=== PATIENT | female | born 1995 | race Caucasian/White ===

== ENCOUNTER 2016-08-03 14:30 | Emergency (ER) | payer SELFPAY ==
[~2016-08-03] VITALS: Ht 172.7 cm; Wt 127.0 kg
[~2016-08-03 14:30] MED LIST: BENZ100C18 PO; CEFU250T PO; CEPH500C PO; CPR500T PO; FAMO-119 PO; HYOS0.1217 PO; METH4TAB PO; METR500T PO; NITR-65 PO; ONDA-42 SL; ONDA4TAB8 PO; PRD20T PO; bcp
--- OUTSIDE RECORDS SUMMARY | 2016-08-03 14:36 | XMS REPORT | Continuity of Care Document ---
Author Author [facility] Organization [facility] Address Unknown Phone Unavailable Care Team Providers Care Supervisor Gear Repair Name Role Phone KALEE SHEA PCP Insurance Providers Payer Name Policy Number Subscriber Name Relationship [facility] [id number] Peyton Zhong 17 Self / Same As Patient Advance Directives Directive Response Recorded Date/Time Advance Directives No 04/18/14 11:02pm Resuscitation Status Full Code 04/18/14 11:02pm Problems Medical Problems Problem Onset Date Status Epigastric abdominal pain Unknown Active Nausea and vomiting Unknown Active Medications Medication Dose Route Sig Days/Qty Instructions Order Date Discontinued Date Status [bcp] 04/12/12 03/21/13 Discontinued Methylprednisolone 0 PO DIRECTED 1 Qty 04/13/12 03/21/13 Discontinued Benzonatate 1 - 2 Each PO Q 4 - 6 HR PRN 30 Qty FOR COUGH 04/13/1203/21 Discontinued Ciprofloxacin 1 Tab PO TWICE A DAY 6 Days 03/21/13 04/18/14 Discontinued Metronidazole 1 Each PO TWICE A DAY 7 Days 03/21/13 04/18/14 Discontinued Prednisone 40 Mg PO DAILY 5 Days 03/21/13 04/18/14 Discontinued Ondansetron Hcl 4 Mg SL EVERY 4HRS PRN NAUSEA 10 Qty 04/19/14 Active Social History Social History Problem Response Recorded Date/Time Alcohol Use Denies Use 04/18/2014 11:02pm Recreational Drug Use No 04/18/2014 11:02pm Recent Foreign Travel No 04/18/2014 11:01pm Recent Infectious Disease Exposure No 04/18/2014 11:01pm Smoking Status Never a Smoker 04/18/2014 11:02pm Query Response Start Date Stop Date Smoking Status Never a Smoker Hospital Discharge Instructions No hospital discharge instructions. Plan of Care No plan of care. Functional Status No functional status results. Allergies, Adverse Reactions, Alerts Allergen Type Severity Reaction Status Last Updated No Known Drug Allergies Active 04/12/12 Immunizations No immunization records. Vital Signs Acute Vital Signs Vital Response Date/Time Temperature (Fahrenheit) 97.5 degrees F (97.6 - 99.5) Temperature Source Temporal Pulse Rate (Adolescent 12-19yrs) 100 bpm (56 - 106) Respiratory Rate (Adolescent 12-19yrs) 16 bpm (15 - 20) Blood Pressure / Blood Pressure Systolic (Adolescent 12-19yrs) 148 mm Hg (115 - 120) Pain Pain Intensity 2 Height (Feet) 5 feet Height (Inches) 8 inches Height (Calculated Centimeters) 172.985985 cm Weight (Pounds) 260 pounds Weight (Calculated Kilograms) 117.163280 kilograms Calculated BMI 39.53 Results Test Source Date Result Interp. Ref. Range Comments Atypical Lymphocytes April 13, 2012 1:40am 10 % - Band Neutrophils April 13, 2012 1:40am 1 % - Basophils # (Auto) April 13, 2012 1:40am 0.6 10^3/uL H 0.0-0.1 Basophils (%) (Auto) April 13, 2012 1:40am 3 % N 0-10 Eosinophils # (Auto) April 13, 2012 1:40am 0.1 10^3/uL N 0.0-0.3 Eosinophils (%) (Auto) April 13, 2012 1:40am 1 % N 0-10 Group A Streptococcus Screen April 13, 2012 1:40am NEGATIVE - Hematocrit April 13, 2012 1:40am 39 % N 35-52 Hemoglobin April 13, 2012 1:40am 13.1 G/DL N 11.5-16.0 Lymphocytes # (Auto) April 13, 2012 1:40am 13.0 X 10^3 H 1.0-4.0 Lymphocytes % (Manual) April 13, 2012 1:40am 63 % - Lymphocytes (%) (Auto) April 13, 2012 1:40am 70 % H 12-44 Mean Corpuscular Hemoglobin April 13, 2012 1:40am 27 PG N 25-34 Mean Corpuscular Hemoglobin Concent April 13, 2012 1:40am 34 G/DL N 32 -36 Mean Corpuscular Volume April 13, 2012 1:40am 81 FL N 80-99 Mean Platelet Volume April 13, 2012 1:40am 10.7 FL H 7.4-10.4 Monocytes # (Auto) April 13, 2012 1:40am 2.2 X 10^3 H 0.0-1.0 Monocytes % (Manual) April 13, 2012 1:40am 8 % - Monocytes (%) (Auto) April 13, 2012 1:40am 12 % N 0-12 Monoscreen April 13, 2012 1:40am POSITIVE H - Neutrophils # (Auto) April 13, 2012 1:40am 2.7 X 10^3 N 1.8-7.8 Neutrophils % (Manual) April 13, 2012 1:40am 18 % - Neutrophils (%) (Auto) April 13, 2012 1:40am 14 % L 42-75 Platelet Count April 13, 2012 1:40am 266 10^3/uL N 130-400 Red Blood Count April 13, 2012 1:40am 4.79 10^6/uL N 4.35-5.85 Red Cell Distribution Width April 13, 2012 1:40am 14.4 % N 10.0-14.5 Urine Bacteria March 21, 2013 7:00pm FEW /HPF H - Has specimen been collected/obtained? YSpecimen Description CLEAN CATCH Urine Bilirubin March 21, 2013 7:00pm NEGATIVE - Has specimen been collected/obtained? YSpecimen Description CLEAN CATCH Urine Casts March 21, 2013 7:00pm NONE /LPF - Has specimen been collected/obtained? YSpecimen Description CLEAN CATCH Urine Clarity March 21, 2013 7:00pm CLEAR - Has specimen been collected/obtained? YSpecimen Description CLEAN CATCH Urine Color March 21, 2013 7:00pm YELLOW - Has specimen been collected/obtained? YSpecimen Description CLEAN CATCH Urine Crystals March 21, 2013 7:00pm NONE /LPF - Has specimen been collected/obtained? YSpecimen Description CLEAN CATCH Urine Culture Indicated March 21, 2013 7:00pm YES - Has specimen been collected/obtained? YSpecimen Description CLEAN CATCH Urine Glucose (UA) March 21, 2013 7:00pm NEGATIVE - Has specimen been collected/obtained? YSpecimen Description CLEAN CATCH Urine Ketones March 21, 2013 7:00pm NEGATIVE - Has specimen been collected/obtained? YSpecimen Description CLEAN CATCH Urine Leukocyte Esterase March 21, 2013 7:00pm 1+ H - Has specimen been collected/obtained? YSpecimen Description CLEAN CATCH Urine Mucus March 21, 2013 7:00pm NEGATIVE /LPF - Has specimen been collected/obtained? YSpecimen Description CLEAN CATCH Urine Nitrite March 21, 2013 7:00pm NEGATIVE - Has specimen been collected/obtained? YSpecimen Description CLEAN CATCH Urine Test March 21, 2013 7:00pm POSITIVE - Urine Protein March 21, 2013 7:00pm 1+ H - Has specimen been collected/obtained? YSpecimen Description CLEAN CATCH Urine RBC March 21, 2013 7:00pm NONE /HPF - Has specimen been collected/obtained? YSpecimen Description CLEAN CATCH Urine Specific [place] March 21, 2013 7:00pm 1.015 L - Has specimen been collected/obtained? YSpecimen Description CLEAN CATCH Urine Squamous Epithelial Cells March 21, 2013 7:00pm 10-25 /HPF H - Has specimen been collected/obtained? YSpecimen Description CLEAN CATCH Urine Urobilinogen March 21, 2013 7:00pm NORMAL MG/DL - Has specimen been collected/obtained? YSpecimen Description CLEAN CATCH Urine WBC March 21, 2013 7:00pm 5-10 /HPF H - Has specimen been collected/obtained? YSpecimen Description CLEAN CATCH Urine pH March 21, 2013 7:00pm 7 - Has specimen been collected/ obtained? YSpecimen Description CLEAN CATCH White Blood Count April 13, 2012 1:40am 18.6 10^3/uL H 4.3-11.0 Blood Morphology Comment April 13, 2012 1:40am NORMAL - Urine RBC (Auto) March 21, 2013 7:00pm NEGATIVE - Has specimen been collected/obtained? YSpecimen Description CLEAN CATCH Throat Culture Throat April 13, 2012 1:40am No Beta Strep isolated Urine Culture Urine-Clean Catch March 21, 2013 7:00pm Procedures No known history of procedures. Encounters Encounter Location Date/Time Departed Emergency Room Via [facility] 04/18/14 10:30pm Recent Diagnosis
[2016-08-03] MEDS ORDERED: HYDROcodone/APAP 5 MG/325 MG (LORTAB) TAB PO ONE (14:45)
--- NOTE | 2016-08-03 14:46 | ED Fall/Injury ---
General Stated Complaint: RT ANKLE.FOOT PAIN Source: patient, family Exam Limitations: no limitations History of Present Illness Time seen by provider: 14:43 Initial Comments This 21-year-old white female presents oxygen for only tripped and fell while walking down 2 steps at home shortly prior to presentation emergency department. The patient sustained an apparent inversion injury to her right foot and ankle as well as an injury to her right leg and knee. Patient is complaining of sharp pain diffusely over the right ankle and foot. The patient' s pain is radiating into the right leg and knee. The patient has been able to weight-bear but with marked discomfort. The patient denies other injury and her accident today. She denies previous significant injury to the right lower extremity. Allergies and Home Medications Allergies Coded Allergies: antipyrine (Unverified Allergy, Unknown, 01/11/15) Home Medications No Active Prescriptions or Reported Meds Constitutional: No chills, No fever Eyes: Denies Blurred Vision, Denies Photophobia Ears, Nose, Mouth, Throat: denies ear pain, denies throat pain Respiratory: No cough Cardiovascular: No chest pain Gastrointestinal: No diarrhea, No nausea, No vomiting Genitourinary: no symptoms reported Musculoskeletal: No back pain, joint pain Skin: no symptoms reported (right foot ankle leg and knee.) other (patient denies abrasions.) Psychiatric/Neurological: No Symptoms Reported Past Ntkbpex-Dlztpw-Mvtpwg Hx Patient Social History Recent Foreign Travel: No Contact w/Someone Who Travel: No Recent Hopitalizations: No Immunizations Up To Date Tetanus Booster (TDap): Less than 5yrs Seasonal Allergies Seasonal Allergies: Yes Surgeries HX Surgeries: Yes ("bladder stretch", Pilonidal Cyst) Surgeries: Cystectomy Respiratory Hx Respiratory Disorders: Yes Respiratory Disorders: Chronic Bronchitis Cardiovascular Hx Cardiac Disorders: No Neurological Hx Neurological Disorders: No Reproductive System Hx Reproductive Disorders: No Genitourinary Hx Genitourinary Disorders: Yes (FREQUENT UTI'S WHEN YOUNG) Genitourinary Disorders: Kidney Infection, Bladder Infection Gastrointestinal Hx Gastrointestinal Disorders: No Musculoskeletal Hx Musculoskeletal Disorders: No Endocrine Hx Endocrine Disorders: Yes (GESTATIONAL DIABETES) HEENT HX ENT Disorders: No Cancer Hx Cancer: No Psychosocial Hx Psychiatric Problems: No Integumentary HX Skin/Integumentary Disorder: No Blood Transfusions Hx Blood Disorders: No Adverse Reaction to a Blood Tr: No Reviewed Nursing Assessment Reviewed/Agree w Nursing PMH: Yes Physical Exam Vital Signs Vital Sign - Last 12Hours 08/03/16 14:35 Temp 97.8 Pulse 94 Resp 18 B/P 126/71 Pulse Ox 96 Capillary Refill : General Appearance: WD/WN mild distress HEENT: normal ENT inspection Neck: normal inspection Cardiovascular: regular rate, rhythm Respiratory: lungs clear normal breath sounds Gastrointestinal: normal bowel sounds non tender soft Back: normal inspection Extremities: swelling (there is moderate soft tissue swelling over lateral aspect of the right ankle. No crepitus or instability was noted. There was similar but less intense tenderness to palpation diffusely over the right foot and calf and posterior knee.) Neurologic/Psychiatric: no motor/sensory deficits alert normal mood/affect Skin: normal color warm/dry [place] Coma Score Best Eye Response: (4) Open Spontaneously Best Verbal Response: (5) Oriented Best Motor Response: (6) Obeys Commands [place] Total: 15 Progress/Results/Core Measures Results/Orders My Orders Orders-PHOEBE DARNELL MD Ankle, Right, 3 Views (08/03/16 14:41) Foot, Right, 3 View (08/03/16 14:41) Knee, Right, 3 Views (08/03/16 14:41) Tibia/Fibula, Right, 2 Views (08/03/16 14:41) Hydrocodone/Apap 5/325 Tablet (Lortab 5 (08/03/16 14:45) Medications Given in ED Current Medications Medications Dose Ordered Sig/Clara Route Start Time Stop Time Status Last Admin Dose Admin Acetaminophen/ Hydrocodone Bitart 2 tab ONCE ONCE PO 08/03/16 14:45 08/03/16 14:46 DC 08/03/16 14:50 1 TAB Vital Signs/I&O Vital Sign - Last 12Hours 08/03/16 14:35 Temp 97.8 Pulse 94 Resp 18 B/P 126/71 Pulse Ox 96 Progress Note : Time: 15:52 Progress Note The patient's x-rays films demonstrated evidence of fracture. Patient was placed in an Tomer wrap and an Aircast. Departure Impression Impression: Primary Impression: Ankle sprain Qualified Code: S93.431A - Sprain of tibiofibular ligament of right ankle, initial encounter Disposition: 01 HOME, SELF-CARE Condition: Improved Departure-Patient Inst. Decision time for Depature: 15:54 Referrals: [facility],LOCAL PHYSICIAN (PCP) Primary Care Physician Patient Instructions: Ankle Sprain (DC) Scripts No Active Prescriptions or Reported Meds PHOEBE DARNELL MD Aug 03, 2016 14:46
--- NOTE | 2016-08-03 15:12 | Diagnostic Imaging Report ---
INDICATION: Fell down stairs, twisted ankle. FINDINGS: There is soft tissue swelling over the lateral malleolus. There are no fractures. Ankle mortise is in good alignment. Articulating surfaces are smooth. IMPRESSION: Soft tissue swelling with no fractures demonstrated. Dictated by: Dictated on workstation # [id number]
--- NOTE | 2016-08-03 15:12 | Diagnostic Imaging Report ---
INDICATION: Fall down steps. Posterior knee pain. FINDINGS: Three views show normal articulation. The articulating surfaces are smooth. The patellas are in good alignment with the trochlea. There are no fractures. IMPRESSION: Normal right knee. Dictated by: Dictated on workstation # [id number]
--- NOTE | 2016-08-03 15:18 | Diagnostic Imaging Report ---
INDICATION: Right foot pain EXAM: AP, oblique, and lateral views of the right foot are obtained FINDINGS: No fracture or acute bony abnormality is seen. IMPRESSION: Negative right foot. Dictated by: Dictated on workstation # [id number]
--- NOTE | 2016-08-03 15:26 | Diagnostic Imaging Report ---
INDICATION: Right leg injury from falling down the stairs FINDINGS: AP and lateral views of the right tibia and fibula show no fracture, dislocation or other acute abnormalities. IMPRESSION: Negative right tibia and fibula. Dictated by: Dictated on workstation # [id number]
[2016-08-03 16:14] VITALS: BP 122/73
== END 2016-08-03 16:14 | disposition home or self-care (01) ==
LOC: EDUNIT# 14:30 → ER 14:33
DX: S93.401A Sprain of unspecified ligament of right ankle, initial encounter (principal); W10.9XXA Fall (on) (from) unspecified stairs and steps, initial encounter; Y92.009 Unspecified place in unspecified non-institutional (private) residence as the place of occurrence of the external cause; Y99.8 Other external cause status
CPT/HCPCS: 73562; 73590; 73610; 73630; 99283

== ENCOUNTER 2016-09-19 23:15 | Emergency (ER) | payer SELFPAY ==
[~2016-09-19] VITALS: Ht 172.7 cm; Wt 127.0 kg
--- NOTE | 2016-09-19 23:28 | ED General ---
General Stated Complaint: SORE THROAT,SOB,FEVER,STOMACH CRAMPS Source of Information: Patient History of Present Illness Time Seen by Provider: 23:25 Initial Comments MULTIPLE COMPLAINTS STATES SHE WOKE UP AT 2130 TONIGHT TO GO TO WORK AND HAD A SORE THROAT AND FEVER OF 102. TOOK IBUPROFEN AT THAT TIME HAS HAD ALLERGY SYMPTOMS AND NON-PRODUCTIVE COUGH X 1 WEEK. NO CHEST PAIN OR SHORTNESS OF BREATH ALSO WANTS CHECKED FOR UTI--LOWER ABDOMINAL CRAMPING, URGENCY, FREQUENCY X 2 WEEKS LMP 2 WEEKS AGO. DID NOT HAVE PERIOD IN AUGUST--HAD ONE IN JULY, THEN THE PERIOD 2 WEEKS AGO WAS SHORT. HAS NOT DONE A HOME TEST. PCP: YANCI KRISHNAMURTHY, KT SHEA Allergies and Home Medications Allergies Coded Allergies: antipyrine (Unverified Allergy, Unknown, 01/11/15) Home Medications Amoxicillin 875 Mg Tablet, 875 MG PO BID, #20 Prescribed by: BENNIE ALCALA on 09/19/16 2350 Constitutional: see HPI, fever EENTM: nose congestion, see HPI, throat pain Respiratory: see HPI, cough, No short of breath, No wheezing Cardiovascular: no symptoms reported Gastrointestinal: see HPI, abdominal pain, No diarrhea, No nausea, No vomiting Genitourinary: see HPI, frequency Musculoskeletal: no symptoms reported Skin: no symptoms reported Psychiatric/Neurological: No Symptoms Reported Hematologic/Lymphatic: No Symptoms Reported Past Vpropjh-Xtorxe-Dxvtmm Hx Patient Social History Alcohol Use: Occasionally Uses Recreational Drug Use: No Smoking Status: Former Smoker (1 PPD, QUIT 2016) Recent Foreign Travel: No Contact w/Someone Who Travel: No Recent Hopitalizations: No Immunizations Up To Date Tetanus Booster (TDap): Less than 5yrs Seasonal Allergies Seasonal Allergies: Yes Surgeries HX Surgeries: Yes ("bladder stretch", Pilonidal Cyst) Surgeries: Bladder Surgery Respiratory Hx Respiratory Disorders: Yes Respiratory Disorders: Chronic Bronchitis Cardiovascular Hx Cardiac Disorders: No Neurological Hx Neurological Disorders: No Reproductive System Hx Reproductive Disorders: No Genitourinary Hx Genitourinary Disorders: Yes (FREQUENT UTI'S WHEN YOUNG) Genitourinary Disorders: Kidney Infection, Bladder Infection Gastrointestinal Hx Gastrointestinal Disorders: No Musculoskeletal Hx Musculoskeletal Disorders: No Endocrine Hx Endocrine Disorders: Yes (GESTATIONAL DIABETES) HEENT HX ENT Disorders: No Cancer Hx Cancer: No Psychosocial Hx Psychiatric Problems: No Integumentary HX Skin/Integumentary Disorder: No Blood Transfusions Hx Blood Disorders: No Adverse Reaction to a Blood Tr: No Physical Exam Vital Signs Vital Sign - Last 12Hours 09/19/16 23:19 Temp 97.8 Pulse 119 Resp 20 B/P (MAP) 133/97 Pulse Ox 99 O2 Delivery Room Air Capillary Refill : General Appearance: No Apparent Distress, WD/WN, Obese, Other (DOES NOT APPEAR ILL) HEENT: PERRL/EOMI, TMs Normal, Normal ENT Inspection, Pharynx Normal, No Photophobia, Other (NO SINUS TENDERNESS) Neck: Full Range of Motion, Normal Inspection, Non Tender, Supple Respiratory: Normal Breath Sounds, No Accessory Muscle Use, No Respiratory Distress Cardiovascular: Regular Rate, Rhythm, No Murmur Gastrointestinal: Normal Bowel Sounds, No Organomegaly, Non Tender, Soft Back: Normal Inspection, No CVA Tenderness Extremity: Normal Inspection Neurologic/Psychiatric: Alert, Oriented x3, No Motor/Sensory Deficits, Normal Mood/Affect, information specialist II-XII Norm as Tested Skin: Normal Color Lymphatic: No Adenopathy Progress/Results/Core Measures Results/Orders Lab Results Laboratory Tests Test 09/19/16 23:25 Range/Units Urine Color YELLOW Urine Clarity CLEAR Urine pH 6 5-9 Urine Specific [place] 1.020 1.016-1.022 Urine Protein 2+ H NEGATIVE Urine Glucose (UA) NEGATIVE NEGATIVE Urine Ketones NEGATIVE NEGATIVE Urine Nitrite NEGATIVE NEGATIVE Urine Bilirubin NEGATIVE NEGATIVE Urine Urobilinogen NORMAL NORMAL MG/DL Urine Leukocyte Esterase NEGATIVE NEGATIVE Urine RBC (Auto) NEGATIVE NEGATIVE Urine RBC NONE /HPF Urine WBC NONE /HPF Urine Squamous Epithelial Cells 2-5 /HPF Urine Crystals NONE /LPF Urine Bacteria FEW H /HPF Urine Casts NONE /LPF Urine Mucus SMALL H /LPF Urine Culture Indicated NO Group A Streptococcus Screen NEGATIVE NEGATIVE My Orders Orders - BENNIE ALCALA DO Rapid Strep A Screen (09/19/16 23:22) Urine Bedside (09/19/16 23:27) Ua Culture If Indicated (09/19/16 23:27) Rx-Amoxicillin Capsule (Rx-Polymox Capsu (09/19/16 23:53) Vital Signs/I&O Vital Sign - Last 12Hours 09/19/16 23:19 Temp 97.8 Pulse 119 Resp 20 B/P (MAP) 133/97 Pulse Ox 99 O2 Delivery Room Air Progress Note : Progress Note NO COUGH AT ANY TIME Departure Impression Impression: Primary Impression: Upper respiratory infection Disposition: 01 HOME, SELF-CARE Condition: Stable Departure-Patient Inst. Patient Instructions: Bacterial Upper Respiratory Infection, Adult (DC) Add. Discharge Instructions: TYLENOL AND MOTRIN NEEDED FOR PAIN OR FEVER CLARITIN FOR NASAL DRAINAGE ROBITUSSIN DM FOR COUGH LOTS OF CLEAR LIQUIDS FOLLOW UP WITH [facility] IN 3-4 DAYS IF NO BETTER Scripts Amoxicillin (Amoxicillin) 875 Mg Tablet 875 MG PO BID for INFECTION, #20 TAB Prov: BENNIE ALCALA DO 09/19/16 BENNIE ALCALA DO Sep 19, 2016 23:28
[2016-09-19 23:37] LABS: BILIRUBIN,URINE NEGATIVE (NEGATIVE); KETONES,URINE NEGATIVE (NEGATIVE); LEUKOCYTE ESTERASE ,URINE NEGATIVE (NEGATIVE); NITRITE,URINE NEGATIVE (NEGATIVE); PH,URINE 6 (5-9); PROTEIN,URINE 2+ (NEGATIVE); UROBILINOGEN,URINE NORMAL (NORMAL)
[2016-09-19] MEDS ORDERED: AMOX875T2 PO (23:50)
[2016-09-19] MEDS ORDERED: RX-AMOXICILLIN 250 MG CAP PPK #3 PO STA (23:53)
[2016-09-19 23:58] VITALS: BP 0/0
--- OUTSIDE RECORDS SUMMARY | 2016-09-23 05:23 | XMS REPORT | Continuity of Care Document ---
Author Author [facility] Organization [facility] Address Unknown Phone Unavailable Allergies Active Description Code Type Severity Reaction Onset Reported/Identified Relationship to Patient Clinical Status Yes No Known Drug Allergies [id number] Drug Allergy Unknown N/ A 04/12/2012 Yes antipyrine [id number] Drug Allergy Unknown N/A 01/11/2015 Medications Problems Date Dx Coded Attending Type Code Diagnosis Diagnosed By 04/12/2012 Ot 462 03/21/2013 ISABELL GUTIERREZ MD Ot 465.9 03/21/2013 ISABELL GUTIERREZ MD Ot 599.0 03/21/2013 ISABELL GUTIERREZ MD Ot 786.2 04/19/2014 BRENDAN GOMES, ESTELA Hoffman Ot 787.01 04/19/2014 BRENDAN GOMES, ESTELA Hoffman Ot 789.06 08/05/2014 BRENDAN GOMES, ESTELA T Ot 780.60 FEVER, UNSPECIFIED 08/05/2014 BRENDAN GOMES, ESTELA Hoffman Ot 787.01 NAUSEA WITH VOMITING 08/05/2014 BRENDAN GOMES, ESTELA T Ot 787.91 DIARRHEA 08/05/2014 BRENDAN GOMES, ESTELA T Ot 789.09 ABDOMINAL PAIN, OTHER SPECIFIED SITE 01/11/2015 BENNIE ALCALA DO Ot 599.0 URIN TRACT INFECTION NOS 01/11/2015 BENNIE ALCALA DO Ot 780.4 DIZZINESS AND GIDDINESS 01/11/2015 BENNIE ALCALA DO Ot 780.79 OTH MALAISE FATIGUE 02/25/2015 ISABELL GUTIERREZ MD Ot 789.00 ABDOMINAL PAIN, UNSPECIFIED SITE 02/28/2015 BENNIE ALCALA DO Ot 623.8 NONINFLAM DIS VAGINA NEC 02/28/2015 BENNIE ALCALA DO Ot 640.03 THREATEN ABORT-ANTEPART 06/26/2015 MAIRA DHILLON STAFF REGISTERED NURSE Ot N39.0 URINARY TRACT INFECTION, SITE NOT SPECIF 12/15/2015 JONATHAN OCONNOR ENIO Agapito Ot K29.70 GASTRITIS, UNSPECIFIED, WITHOUT BLEEDING 12/15/2015 JONATHAN ENIO OCONNOR Ot N39.0 URINARY TRACT INFECTION, SITE NOT SPECIF 12/16/2015 JONATHAN ENIO OCONNOR Ot K29.70 GASTRITIS, UNSPECIFIED, WITHOUT BLEEDING 12/16/2015 JONATHAN OCONNOR ENIO Agapito Ot N39.0 URINARY TRACT INFECTION, SITE NOT SPECIF 04/28/2016 KAN, EVGENY ELECTROMEDICAL EQUIPMENT REPAIRER Ot R10.84 GENERALIZED ABDOMINAL PAIN 04/28/2016 KAN, EVGENY ELECTROMEDICAL EQUIPMENT REPAIRER Ot R35.8 OTHER POLYURIA 04/28/2016 KAN, EVGENY ELECTROMEDICAL EQUIPMENT REPAIRER Ot Z83.3 FAMILY HISTORY OF DIABETES MELLITUS 04/30/2016 KAN, EVGENY ELECTROMEDICAL EQUIPMENT REPAIRER Ot R10.84 GENERALIZED ABDOMINAL PAIN 04/30/2016 KAN, EVGENY ELECTROMEDICAL EQUIPMENT REPAIRER Ot R35.8 OTHER POLYURIA 04/30/2016 KAN, EVGENY ELECTROMEDICAL EQUIPMENT REPAIRER Ot Z83.3 FAMILY HISTORY OF DIABETES MELLITUS 08/05/2016 CARIE GOMES, PHOEBE Slaughter Ot S93.401A SPRAIN OF UNSPECIFIED LIGAMENT OF RIGHT 08/05/2016 PHOEBE DARNELL MD Ot S99.911A UNSPECIFIED INJURY OF RIGHT ANKLE, INITI 08/05/2016 PHOEBE DARNELL MD Ot W10.9XXA FALL (ON) (FROM) UNSPECIFIED STAIRS AND 08/05/2016 PHOEBE DARNELL MD Ot Y92.[address] IN [facility] NON-INSTITUT (PRIVATE 08/05/2016 PHOEBE DARNELL MD Ot Y99.8 OTHER EXTERNAL CAUSE STATUS Procedures Results Test Result Range Complete urinalysis with reflex to culture - 04/28/16 20:10 Urine color determination YELLOW NRG Urine clarity determination SLIGHTLY CLOUDY NRG Urine pH measurement by test strip 6 5- 9 Specific gravity of urine by test strip 1.025 1.016-1.022 Urine protein assay by test strip, semi-quantitative 2+ NEGATIVE Urine glucose detection by automated test strip NEGATIVE NEGATIVE Erythrocytes detection in urine sediment by light microscopy NEGATIVE NEGATIVE Urine ketones detection by automated test strip NEGATIVE NEGATIVE Urine nitrite detection by test strip NEGATIVE NEGATIVE Urine total bilirubin detection by test strip NEGATIVE NEGATIVE Urine urobilinogen measurement by automated test strip (mass/volume) NORMAL NORMAL Urine leukocyte esterase detection by dipstick 1+ NEGATIVE Automated urine sediment erythrocyte count by microscopy (number/high power field) RARE NRG Automated urine sediment leukocyte count by microscopy (number/high power field ) [HPF] NRG Bacteria detection in urine sediment by light microscopy NEGATIVE NRG Squamous epithelial cells detection in urine sediment by light microscopy TNTC NRG Crystals detection in urine sediment by light microscopy NONE NRG Casts detection in urine sediment by light microscopy NONE NRG Mucus detection in urine sediment by light microscopy LARGE NRG Complete urinalysis with reflex to culture NO NRG Renal epithelial cells detection in urine sediment by light microscopy NONE NRG Capillary blood glucose measurement by glucometer (mass/volume) - 04/28/16 20: 52 Capillary blood glucose measurement by glucometer (mass/volume) 137 mg/dL 70-110 Complete urinalysis with reflex to culture - 09/19/16 23:25 Urine color determination YELLOW NRG Urine clarity determination CLEAR NRG Urine pH measurement by test strip 6 5- 9 Specific gravity of urine by test strip 1.020 1.016-1.022 Urine protein assay by test strip, semi-quantitative 2+ NEGATIVE Urine glucose detection by automated test strip NEGATIVE NEGATIVE Erythrocytes detection in urine sediment by light microscopy NEGATIVE NEGATIVE Urine ketones detection by automated test strip NEGATIVE NEGATIVE Urine nitrite detection by test strip NEGATIVE NEGATIVE Urine total bilirubin detection by test strip NEGATIVE NEGATIVE Urine urobilinogen measurement by automated test strip (mass/volume) NORMAL NORMAL Urine leukocyte esterase detection by dipstick NEGATIVE NEGATIVE Automated urine sediment erythrocyte count by microscopy (number/high power field) NONE NRG Automated urine sediment leukocyte count by microscopy (number/high power field ) NONE NRG Bacteria detection in urine sediment by light microscopy FEW NRG Squamous epithelial cells detection in urine sediment by light microscopy 2-5 NRG Crystals detection in urine sediment by light microscopy NONE NRG Casts detection in urine sediment by light microscopy NONE NRG Mucus detection in urine sediment by light microscopy SMALL NRG Complete urinalysis with reflex to culture NO NRG Streptococcus pyogenes antigen detection - 09/19/16 23:25 Streptococcus pyogenes antigen detection NEGATIVE NEGATIVE Bacterial throat culture - 09/19/16 23:25 Bacterial throat culture NBS NRG Encounters ACCT No. Visit Date/Time Discharge Status Pt. Type Provider Facility Loc./Unit Complaint [id number] 08/03/2016 14:33:00 2016 16:14:00 DIS Outpatient CARIE GOMES, PHOEBE S [facility] ER RT ANKLE.FOOT PAIN [id number] 04/28/2016 19:44:00 2015 21:12:00 DIS Emergency EVGENY OMER [facility] ER AB PAIN [id number] 12/15/2015 21:57:00 2015 23:54:00 DIS Emergency JONATHAN OCONNORENIO [facility] ER ABDOMINAL PAIN [id number] 06/25/2015 21:34:00 2014 00:14:00 DIS Emergency MAIRA DHILLON Tanmay BARON [facility] ER POSSIBLE MISCARRAGE [id number] 02/27/2015 19:07:00 2014 00:50:00 DIS Emergency BENNIE ALCALA DO [facility] ER MENSTRAL PROBLEMS [id number] 02/25/2015 20:10:00 2014 21:53:00 DIS Emergency ISABELL GUTIERREZ MD [facility] ER BLEEDING, CRAMPING [id number] 01/11/2015 20:42:00 2014 22:20:00 DIS Emergency BENNIE ALCALA DO [facility] ER DIZZINESS [id number] 08/05/2014 20:07:00 2014 22:07:00 DIS Emergency ESTELA CARDONA MD [facility] ER LOWER ABD PAIN [id number] 04/18/2014 22:30:00 2013 02:31:00 DIS Emergency ESTELA CARDONA MD [facility] ER [id number] 03/21/2013 18:16:00 2012 20:09:00 DIS Emergency ISABELL GUTIERREZ MD [facility] ER [id number] 09/19/2016 23:45:00 Document Registration [id number] 04/12/2012 22:27:00 Document Registration
== END 2016-09-19 23:58 | disposition home or self-care (01) ==
LOC: EDUNIT# 23:15 → ER 23:17
DX: J06.9 Acute upper respiratory infection, unspecified (principal); R10.30 Lower abdominal pain, unspecified
CPT/HCPCS: 81000; 84703; 87430; 99283

== ENCOUNTER 2017-07-31 09:43 | Emergency (ER) | payer SELFPAY ==
[~2017-07-31] VITALS: Ht 172.7 cm; Wt 136.1 kg
[~2017-07-31 09:43] MED LIST changes: +AMOX875T2 PO; +LEVO500T2 PO; +NAPR500T4 PO; +PHEN-640 PO
--- OUTSIDE RECORDS SUMMARY | 2017-07-31 09:48 | XMS REPORT ---
Author Author EDDIE GARCIA [facility] Address [address] [place] [address] Care Team Providers Care Coagulation Operator Name Role Phone EDDIE GARCIA Unavailable PROBLEMS Unknown Problems ALLERGIES No Information SOCIAL HISTORY Never Assessed PLAN OF CARE VITAL SIGNS MEDICATIONS No Known Medications RESULTS Name Result Date Reference Range TEST, URINE (IN HOUSE) RESULTS Negative Lot # [id number] Control + Exp date 09/2017 PROCEDURES Procedure Date Ordered Result Body Site URINE TEST Aug 09, 2016 IMMUNIZATIONS No Known Immunizations MEDICAL (GENERAL) HISTORY Type Description Date Medical History chronic bronchitis Medical History Pre-diabetes Surgical History bladder stretched Surgical History pilonidal cyst excision Hospitalization History past surgery Hospitalization History Kidney issues as a child Hospitalization History child
--- OUTSIDE RECORDS SUMMARY | 2017-07-31 09:49 | XMS REPORT | Continuity of Care Document ---
Author Author [facility] Organization [facility] Address Unknown Phone Unavailable Allergies Active Description Code Type Severity Reaction Onset Reported/Identified Relationship to Patient Clinical Status Yes No Known Drug Allergies [id number] Drug Allergy Unknown N/A 04/12/2012 Yes antipyrine [id number] Drug Allergy Unknown N/A 01/11/2015 Medications There is no data. Problems Date Dx Coded Attending Type Code Diagnosis Diagnosed By 04/12/2012 Ot 462 03/21/2013 BRENDA GOMES, ISABELL Altman Ot 465.9 03/21/2013 BRENDA GOMES, ISABELL Altman Ot 599.0 03/21/2013 BRENDA GOMES, ISABELL Altman Ot 786.2 04/19/2014 BRENDAN GOMES, ESTELA Hoffman Ot 787.01 04/19/2014 BRENDAN GOMES, ESTELA Hoffman Ot 789.06 08/05/2014 BRENDAN GOMES, ESTELA Hoffman Ot 780.60 FEVER, UNSPECIFIED 08/05/2014 BRENDAN GOMES, ESTELA Hoffman Ot 787.01 NAUSEA WITH VOMITING 08/05/2014 BRENDAN GOMES, ESTELA Hoffman Ot 787.91 DIARRHEA 08/05/2014 BRENDAN GOMES, ESTELA Hoffman Ot 789.09 ABDOMINAL PAIN, OTHER SPECIFIED SITE 01/11/2015 BENNIE ALCALA DO Ot 599.0 URIN TRACT INFECTION NOS 01/11/2015 BENNIE ALCALA DO Ot 780.4 DIZZINESS AND GIDDINESS 01/11/2015 BENNIE ALCALA DO Ot 780.79 OTH MALAISE FATIGUE 02/25/2015 BRENDA GOMES, ISABELL Altman Ot 789.00 ABDOMINAL PAIN, UNSPECIFIED SITE 02/28/2015 BENNIE ALCALA DO Ot 623.8 NONINFLAM DIS VAGINA NEC 02/28/2015 BENNIE ALCALA DO Ot 640.03 THREATEN ABORT-ANTEPART 06/26/2015 MAIRA DHILLON APRN Ot N39.0 URINARY TRACT INFECTION, SITE NOT SPECIF 12/15/2015 JONATHANENIO VALLE DO Ot K29.70 GASTRITIS, UNSPECIFIED, WITHOUT BLEEDING 12/15/2015 JONATHANENIO VALLE DO Ot N39.0 URINARY TRACT INFECTION, SITE NOT SPECIF 12/16/2015 JONATHANENIO VALLE DO Ot K29.70 GASTRITIS, UNSPECIFIED, WITHOUT BLEEDING 12/16/2015 JONATHAN ENIO OCONNOR Ot N39.0 URINARY TRACT INFECTION, SITE NOT SPECIF 04/28/2016 KAN, EVGENY [employer] MANAGER Ot R10.84 GENERALIZED ABDOMINAL PAIN 04/28/2016 KAN, EVGENY [employer] SERVICES MANAGER Ot R35.8 OTHER POLYURIA 04/28/2016 KAN, EVGENY [employer] SERVICES MANAGER Ot Z83.3 FAMILY HISTORY OF DIABETES MELLITUS 04/30/2016 KAN, EVGENY [employer] SERVICES MANAGER Ot R10.84 GENERALIZED ABDOMINAL PAIN 04/30/2016 KAN, EVGENY [employer] SERVICES MANAGER Ot R35.8 OTHER POLYURIA 04/30/2016 KAN, EVGENY [employer] SERVICES MANAGER Ot Z83.3 FAMILY HISTORY OF DIABETES MELLITUS 08/03/2016 PHOEBE DARNELL MD Ot S93.401A SPRAIN OF UNSPECIFIED LIGAMENT OF RIGHT 08/03/2016 PHOEBE DARNELL MD Ot S99.911A UNSPECIFIED INJURY OF RIGHT ANKLE, INITI 08/03/2016 PHOEBE DARNELL MD Ot W10.9XXA FALL (ON) (FROM) UNSPECIFIED STAIRS AND 08/03/2016 PHOEBE DARNELL MD Ot Y92.[address] IN [facility] NON-INSTITUT (PRIVATE 08/03/2016 PHOEBE DARNELL MD Ot Y99.8 OTHER EXTERNAL CAUSE STATUS 08/05/2016 PHOEBE DARNELL MD Ot S93.401A SPRAIN OF UNSPECIFIED LIGAMENT OF RIGHT 08/05/2016 PHOEBE DARNELL MD Ot S99.911A UNSPECIFIED INJURY OF RIGHT ANKLE, INITI 08/05/2016 PHOEBE DARNELL MD Ot W10.9XXA FALL (ON) (FROM) UNSPECIFIED STAIRS AND 08/05/2016 PHOEBE DARNELL MD Ot Y92.[address] IN [facility] NON-INSTITUT (PRIVATE 08/05/2016 PHOEBE DARNELL MD Ot Y99.8 OTHER EXTERNAL CAUSE STATUS 09/19/2016 FREDRICK DO, BENNIE K Ot J02.9 ACUTE PHARYNGITIS, UNSPECIFIED 09/19/2016 FREDRICK DO, BENNIE K Ot J06.9 ACUTE UPPER RESPIRATORY INFECTION, UNSPE 09/19/2016 FREDRICK DO, BENNIE K Ot R10.30 LOWER ABDOMINAL PAIN, UNSPECIFIED 09/20/2016 FREDRICK DO, BENNIE K Ot J02.9 ACUTE PHARYNGITIS, UNSPECIFIED 09/20/2016 FREDRICK DO, BENNIE K Ot J06.9 ACUTE UPPER RESPIRATORY INFECTION, UNSPE 09/20/2016 FREDRICK DO, BENNIE K Ot R10.30 LOWER ABDOMINAL PAIN, UNSPECIFIED 09/21/2016 FREDRICK DO, BENNIE K Ot J02.9 ACUTE PHARYNGITIS, UNSPECIFIED 09/21/2016 FREDRICK , BENNIE K Ot J06.9 ACUTE UPPER RESPIRATORY INFECTION, UNSPE 09/21/2016 FREDRICK DO, BENNIE K Ot R10.30 LOWER ABDOMINAL PAIN, UNSPECIFIED Procedures There is no data. Results Test Result Range Complete urinalysis with reflex to culture - 04/28/16 20:10 Urine color determination YELLOW NRG Urine clarity determination SLIGHTLY CLOUDY NRG Urine pH measurement by test strip 6 5-9 Specific gravity of urine by test strip 1.025 1.016- 1.022 Urine protein assay by test strip, semi-quantitative [...] Urine pH measurement by test strip 6 5-9 Specific gravity of urine by test strip 1.020 1.016- 1.022 Urine protein assay by test strip, semi-quantitative [...] 09/19/16 23:25 Bacterial throat culture NBS NRG Complete urinalysis with reflex to culture - 04/29/17 07:25 Urine color determination YELLOW NRG Urine clarity determination CLEAR NRG Urine pH measurement by test strip 6 5-9 Specific gravity of urine by test strip 1.020 1.016- 1.022 Urine protein assay by test strip, semi-quantitative 3+ NEGATIVE Urine glucose detection by automated test strip NEGATIVE NEGATIVE Erythrocytes detection in urine sediment by light microscopy NEGATIVE NEGATIVE Urine ketones detection by automated test strip NEGATIVE NEGATIVE Urine nitrite detection by test strip NEGATIVE NEGATIVE Urine total bilirubin detection by test strip NEGATIVE NEGATIVE Urine urobilinogen measurement by automated test strip (mass/volume) 1 mg/dL NORMAL Urine leukocyte esterase detection by dipstick 1+ NEGATIVE Automated urine sediment erythrocyte count by microscopy (number/high power field) NONE NRG Automated urine sediment leukocyte count by microscopy (number/high power field ) [HPF] NRG Bacteria detection in urine sediment by light microscopy MODERATE NRG Squamous epithelial cells detection in urine sediment by light microscopy 5-10 NRG Crystals detection in urine sediment by light microscopy NONE NRG Casts detection in urine sediment by light microscopy NONE NRG Mucus detection in urine sediment by light microscopy MODERATE NRG Complete urinalysis with reflex to culture YES NRG Bacterial urine culture - 04/29/17 07:25 URINE CULTURE RESULTS <10,000/ML NRG Encounters ACCT No. Visit Date/Time Discharge Status Pt. Type Provider Facility Loc./Unit Complaint [id number] 04/29/2017 07:11:00 04/29/2017 08:50:00 DIS Emergency BENNIE ALCALA DO [facility] ER BACK PAIN,ABD PAIN [id number] 09/19/2016 23:17:00 09/19/2016 23:58:00 DIS Emergency BENNIE ALCALA DO [facility] ER SORE THROAT,SOB,FEVER, STOMACH CRAMPS [id number] 08/03/2016 14:33:00 08/03/2016 16:14:00 DIS Emergency CARIE GOMES, PHOEBE Slaughter [facility] ER RT ANKLE.FOOT PAIN [id number] 04/28/2016 19:44:00 04/28/2016 21:12:00 DIS Emergency EVGENY OMER [facility] ER AB PAIN [id number] 12/15/2015 21:57:00 12/15/2015 23:54:00 DIS Emergency ENIO CASTILLO DO [facility] ER ABDOMINAL PAIN [id number] 06/25/2015 21:34:00 06/26/2015 00:14:00 DIS Emergency MAIRA DHILLON APRN [facility] ER POSSIBLE MISCARRAGE [id number] 02/27/2015 19:07:00 02/28/2015 00:50:00 DIS Emergency BENNIE ALCALA DO [facility] ER MENSTRAL PROBLEMS [id number] 02/25/2015 20:10:00 02/25/2015 21:53:00 DIS Emergency ISABELL GUTIERREZ MD [facility] ER BLEEDING, CRAMPING [id number] 01/11/2015 20:42:00 01/11/2015 22:20:00 DIS Emergency BENNIE ALCALA DO [facility] ER DIZZINESS [id number] 08/05/2014 20:07:00 08/05/2014 22:07:00 DIS Emergency ESTELA CARDONA MD [facility] ER LOWER ABD PAIN [id number] 04/18/2014 22:30:00 04/19/2014 02:31:00 DIS Emergency ESTELA CARDONA MD [facility] ER [id number] 03/21/2013 18:16:00 03/21/2013 20:09:00 DIS Emergency ISABELL GUTIERREZ MD [facility] ER [id number] 04/12/2012 22:27:00 Document Registration
[2017-07-31] MEDS ORDERED: IBUPROFEN 800 MG (MOTRIN) TAB PO STA (11:16)
[2017-07-31] MEDS ORDERED: HYDROcodone/APAP 7.5 MG/325 MG (LORTAB, LORCET PLUS) TABLET PO STA (11:16)
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
[2017-07-31] MEDS ORDERED: CYCL10TA9 PO (11:51)
[2017-07-31] MEDS ORDERED: ACHD5005 PO (11:51)
[2017-07-31 12:00] VITALS: BP 137/66
--- NOTE | 2017-07-31 12:07 | Diagnostic Imaging Report ---
INDICATION: Right ankle pain AP, oblique, and lateral views of the right ankle are obtained. No fracture or acute bony abnormality is seen. IMPRESSION: Negative right ankle. Dictated by: Dictated on workstation # [id number]
--- NOTE | 2017-07-31 12:09 | Diagnostic Imaging Report ---
INDICATION: Right foot pain. TECHNIQUE: AP, oblique, and lateral views of the right foot are obtained. FINDINGS: No fracture or acute bony abnormality is seen. IMPRESSION: Negative right foot. Dictated by: Dictated on workstation # [id number]
== END 2017-07-31 11:59 | disposition home or self-care (01) ==
LOC: EDUNIT# 09:43 → ER 09:44
DX: S93.401A Sprain of unspecified ligament of right ankle, initial encounter (principal); S90.31XA Contusion of right foot, initial encounter; E66.9 Obesity, unspecified; Z68.42 Body mass index [BMI] 45.0-49.9, adult; Z88.1 Allergy status to other antibiotic agents; V53.6XXA Passenger in pick-up truck or van injured in collision with car, pick-up truck or van in traffic accident, initial encounter; Y92.411 Interstate highway as the place of occurrence of the external cause
CPT/HCPCS: 73610; 73630; 99283

== ENCOUNTER 2018-07-27 13:06 | Emergency (ER) | payer SELFPAY ==
[~2018-07-27] VITALS: Ht 172.7 cm; Wt 136.1 kg
[~2018-07-27 13:06] MED LIST changes: +ACHD5005 PO; +CYCL10TA9 PO; +NAPR-915 PO; -NAPR500T4 PO
--- OUTSIDE RECORDS SUMMARY | 2018-07-27 13:12 | XMS REPORT ---
Author Author PIA SWANSON Organization [facility] [place] Address [address] [place] [address] Care Team Providers Care Associate Dean Of Women Name Role Phone SWANSONCANDY LeyvaELE Unavailable PROBLEMS Unknown Problems ALLERGIES Substance Reaction Event Type Date Status numbing ear drops Unknown Non Drug Allergy Dec, Active ENCOUNTERS Encounter Location Date Diagnosis [facility] [place] [address] [address] Sep, Ingrowing nail with infection L60.0 [facility] [id number] [place] [address] Jul, BMI 45.0-49.9, adult Z68.42 and Right hip pain M25.551 [facility] [place] [id number] [place] [address] Dec, Acute seasonal allergic rhinitis due to pollen J30.1 [facility] [place] [id number] [place] [address] Aug, Encounter for test, result unknown Z32.00 [place] [address] [address] Mar, IMMUNIZATIONS No Known Immunizations SOCIAL HISTORY Never Assessed REASON FOR VISIT Respiratory c/o--tcuppettRN, -Dyspnea, cough, congestion that started yesterday PLAN OF CARE Activity Details Follow Up prn Reason: VITAL SIGNS Height 68 in 2017-01-23 Weight 299.3 lbs 2017-01-23 Temperature 97.9 degrees Fahrenheit 2017-01-23 Heart Rate 76 bpm 2017-01-23 Respiratory Rate 20 2017-01-23 BMI 45.50 kg/m2 2017-01-23 Blood pressure systolic 130 mmHg 2017-01-23 Blood pressure diastolic 88 mmHg 2017-01-23 MEDICATIONS Medication Instructions Dosage Frequency Start Date End Date Duration Status Fluticasone Propionate 50 MCG/ACT Nasally Once a day 1 spray in each nostril 24h Dec, 10 days Active Cetirizine HCl 10 mg Orally Once a day 1 tablet 24h Dec, Mar, 90 days Active RESULTS No Results PROCEDURES No Known procedures INSTRUCTIONS MEDICATIONS ADMINISTERED No Known Medications MEDICAL (GENERAL) HISTORY Type Description Date Medical History chronic bronchitis Medical History Pre-diabetes Medical History hip dislocation Surgical History bladder stretched Surgical History pilonidal cyst excision Hospitalization History past surgery Hospitalization History Kidney issues as a child Hospitalization History child
--- OUTSIDE RECORDS SUMMARY | 2018-07-27 13:12 | XMS REPORT ---
Author Author ENIO ZIMMERMAN Organization [facility] Address [address] [place] [address] Care Team Providers Care Representative Government Relations Name Role Phone ENIO ZIMMERMAN Unavailable PROBLEMS No Known Problems ALLERGIES Substance Reaction Event Type Date Status numbing ear drops Unknown Non Drug Allergy May, Active ENCOUNTERS Encounter Location Date Diagnosis [facility] [address] [address] May, Ingrowing nail with infection L60.0 [facility] [address] [address] May, Ingrown left greater toenail L60.0 ; Dysfunction of right eustachian tube H69.81 and BMI 40.0-44.9, adult Z68.41 [facility] [id number] [place] [address] Mar, Acute suppurative otitis media of left ear with spontaneous rupture of tympanic membrane, recurrence not specified H66.012 and BMI 40.0-44.9 , adult Z68.41 [facility] [address] [place] [address] Mar, BMI 40.0-44.9, adult Z68.41 ; Acute nasopharyngitis J00 and Sore throat J02.9 [facility] [id number] [place] [address] Sep, BMI 45.0-49.9, adult Z68.42 and Ingrowing nail with infection L60.0 [facility] [id number] [place] [address] Sep, [facility] [id number] [place] [address] Sep, Ingrowing nail with infection L60.0 [facility] [id number] [place] [address] Jul, BMI 45.0-49.9, adult Z68.42 and Right hip pain M25.551 [facility] [address] [place] [address] Dec, Acute seasonal allergic rhinitis due to pollen J30.1 [facility] [address] [place] [address] Aug, Encounter for test, result unknown Z32.00 [place] [address] [place] [address] Mar, IMMUNIZATIONS No Known Immunizations SOCIAL HISTORY Never Assessed REASON FOR VISIT Toenail removal -Oli FANG PLAN OF CARE Activity Details Future/Pending Procedure NAIL REMOVAL PERMANENT (PARTIAL OR COMPLETE) VITAL SIGNS Height 68 in 2018-06-10 Weight 293.2 lbs 2018-06-10 Temperature 97.5 degrees Fahrenheit 2018-06-10 Heart Rate 78 bpm 2018-06-10 Respiratory Rate 20 2018-06-10 Oximetry 98 % 2018-06-10 BMI 44.58 kg/m2 2018-06-10 Blood pressure systolic 128 mmHg 2018-06-10 Blood pressure diastolic 70 mmHg 2018-06-10 MEDICATIONS Medication Instructions Dosage Frequency Start Date End Date Duration Status Sudafed 12 Hour 120 mg Orally every 12 hrs 1 tablet as needed 12h May, 28 days Not-Taking Keflex 500 mg Orally every 12 hrs 1 capsule 12h May, 10 day(s) Not-Taking Barnet 5-325 MG Orally every 6 hrs 1 tablet as needed 6h May, Active Keflex 500 mg Orally 4 times a day 1 capsule 6h May, 10 day(s) Active RESULTS No Results PROCEDURES Procedure Date Ordered Result Body Site REMOVAL OF NAIL BED Jun 10, 2018 INSTRUCTIONS MEDICATIONS ADMINISTERED No Known Medications MEDICAL (GENERAL) HISTORY Type Description Date Medical History chronic bronchitis Medical History Pre-diabetes Medical History hip dislocation Surgical History bladder stretched Surgical History pilonidal cyst excision Hospitalization History past surgery Hospitalization History Kidney issues as a child Hospitalization History child
--- OUTSIDE RECORDS SUMMARY | 2018-07-27 13:12 | XMS REPORT ---
Author Author KELSEY MCNEAL Organization [facility] [place] Address [address] [place] [address] Care Team Providers Care Mail Clerk Name Role Phone KELSEY MCNEAL Unavailable PROBLEMS No Known Problems ALLERGIES Substance Reaction Event Type Date Status numbing ear drops Unknown Non Drug Allergy Mar, Active ENCOUNTERS Encounter Location Date Diagnosis [facility] [place] [address] [address] May, [facility] [place] [id number] [place] [address] Mar, Acute suppurative otitis media of left ear with spontaneous rupture of tympanic membrane, recurrence not specified H66.012 and BMI 40.0-44.9 , adult Z68.41 [facility] [id number] [place] [address] Mar, BMI 40.0-44.9, adult Z68.41 ; Acute nasopharyngitis J00 and Sore throat J02.9 [facility] [place] [id number] [place] [address] Sep, BMI 45.0-49.9, adult Z68.42 and Ingrowing nail with infection L60.0 [facility] [place] [address] [place] [address] Sep, [facility] [place] [id number] [place] [address] Sep, Ingrowing nail with infection L60.0 [facility] [id number] [place] [address] Jul, BMI 45.0-49.9, adult Z68.42 and Right hip pain M25.551 [place] [address] [facility] [id number] [address] Dec, Acute seasonal allergic rhinitis due to pollen J30.1 [place] [address] [address] [facility] [id number], [place] [address] Aug, Encounter for test, result unknown Z32.00 [place] [address] [address] [facility] [id number] [address] Mar, IMMUNIZATIONS No Known Immunizations SOCIAL HISTORY Never Assessed REASON FOR VISIT increased ear pain-mohamudRMA, pt is complaining of pain in her left ear and it is draining, started yesterday also coughing up green phlegm and stuffy nose PLAN OF CARE Activity Details Follow Up 1 Week Reason:f/u left ear infection VITAL SIGNS Height 68 in 2018-04-24 Weight 287.3 lbs 2018-04-24 Temperature 99.7 degrees Fahrenheit 2018-04-24 Heart Rate 84 bpm 2018-04-24 Respiratory Rate 20 2018-04-24 Oximetry on room air:98 % 2018-04-24 BMI 43.68 kg/m2 2018-04-24 Blood pressure systolic 130 mmHg 2018-04-24 Blood pressure diastolic 78 mmHg 2018-04-24 MEDICATIONS Medication Instructions Dosage Frequency Start Date End Date Duration Status Augmentin 875-125 MG Orally every 12 hrs 1 tablet 12h Mar, May, 10 day(s) Active Diflucan 150 MG Orally one time, may repeat in a few days if necessary 1 tablet Mar, Mar, 1 dose Active RESULTS No Results PROCEDURES No Known procedures INSTRUCTIONS MEDICATIONS ADMINISTERED No Known Medications MEDICAL (GENERAL) HISTORY Type Description Date Medical History chronic bronchitis Medical History Pre-diabetes Medical History hip dislocation Surgical History bladder stretched Surgical History pilonidal cyst excision Hospitalization History past surgery Hospitalization History Kidney issues as a child Hospitalization History child
--- OUTSIDE RECORDS SUMMARY | 2018-07-27 13:12 | XMS REPORT ---
Author Author ENIO ZIMMERMAN Organization [facility] Address [address] [place] [address] Care Team Providers Care Service Loss Control Consultant Name Role Phone ENIO ZIMMERMAN Unavailable PROBLEMS Unknown Problems ALLERGIES Substance Reaction Event Type Date Status numbing ear drops Unknown Non Drug Allergy Sep, Active ENCOUNTERS Encounter Location Date Diagnosis [facility] [address] [address] Sep, BMI 45.0-49.9, adult Z68.42 and Ingrowing nail with infection L60.0 [facility] [address] [address] Sep, [facility] [address] [address] Sep, Ingrowing nail with infection L60.0 [facility] [address] [address] Jul, BMI 45.0-49.9, adult Z68.42 and Right hip pain M25.551 [place] [address] [address] Dec, Acute seasonal allergic rhinitis due to pollen J30.1 [facility] [id number] [place] [address] Aug, Encounter for test, result unknown Z32.00 [place] [address] [address] Mar, IMMUNIZATIONS No Known Immunizations SOCIAL HISTORY Never Assessed REASON FOR VISIT Toenail removal stella great toes CBrumbackRn PLAN OF CARE Activity Details Future/Pending Procedure NAIL REMOVAL PERMANENT (PARTIAL OR COMPLETE) VITAL SIGNS Height 68 in 2017-10-22 Weight 298.5 lbs 2017-10-22 Temperature 97.7 degrees Fahrenheit 2017-10-22 Heart Rate 78 bpm 2017-10-22 Respiratory Rate 18 2017-10-22 BMI 45.38 kg/m2 2017-10-22 Blood pressure systolic 144 mmHg 2017-10-22 Blood pressure diastolic 96 mmHg 2017-10-22 MEDICATIONS Medication Instructions Dosage Frequency Start Date End Date Duration Status Fluticasone Propionate 50 MCG/ACT Nasally Once a day 1 spray in each nostril 24h Dec, 10 days Not-Taking [place] 5-325 MG Orally every 6 hrs 1 tablet as needed 6h Sep, Active RESULTS No Results PROCEDURES Procedure Date Ordered Result Body Site REMOVAL OF NAIL BED October 22, 2017 INSTRUCTIONS MEDICATIONS ADMINISTERED No Known Medications MEDICAL (GENERAL) HISTORY Type Description Date Medical History chronic bronchitis Medical History Pre-diabetes Medical History hip dislocation Surgical History bladder stretched Surgical History pilonidal cyst excision Hospitalization History past surgery Hospitalization History Kidney issues as a child Hospitalization History child
--- OUTSIDE RECORDS SUMMARY | 2018-07-27 13:12 | XMS REPORT ---
Author Author FUAD LANDON [facility]ALK IN [facility] Address [address] [place] [address] Care Team Providers Care Retail Maintenance Technician Name Role Phone FUAD LANDON Unavailable PROBLEMS No Known Problems ALLERGIES Substance Reaction Event Type Date Status numbing ear drops Unknown Non Drug Allergy Mar, Active ENCOUNTERS Encounter Location Date Diagnosis [facility] [id number] [place] [address] May, [facility] [id number] [place] [address] Mar, Acute suppurative otitis media of left ear with spontaneous rupture of tympanic membrane, recurrence not specified H66.012 and BMI 40.0-44.9 , adult Z68.41 [facility] IN [facility] [id number] [place] [address] Mar, BMI 40.0-44.9, adult Z68.41 ; Acute nasopharyngitis J00 and Sore throat J02.9 [facility] [id number] [place] [address] Sep, BMI 45.0-49.9, adult Z68.42 and Ingrowing nail with infection L60.0 [facility] [address] [place] [address] Sep, [facility] [id number] [place] [address] Sep, Ingrowing nail with infection L60.0 [facility] [id number] [place] [address] Jul, BMI 45.0-49.9, adult Z68.42 and Right hip pain M25.551 [place] [address] [id number] [address] Dec, Acute seasonal allergic rhinitis due to pollen J30.1 [place] [id number] [address] Aug, Encounter for test, result unknown Z32.00 [place] [address] [address] Mar, IMMUNIZATIONS No Known Immunizations SOCIAL HISTORY Never Assessed REASON FOR VISIT Sore throat and tongue, ear pain and cough started yesterday JStrasserRN PLAN OF CARE Activity Details Follow Up prn Reason: VITAL SIGNS Height 68 in 2018-04-23 Weight 290.4 lbs 2018-04-23 Temperature 98.2 degrees Fahrenheit 2018-04-23 Heart Rate 72 bpm 2018-04-23 Respiratory Rate 22 2018-04-23 BMI 44.15 kg/m2 2018-04-23 Blood pressure systolic 132 mmHg 2018-04-23 Blood pressure diastolic 88 mmHg 2018-04-23 MEDICATIONS Unknown Medications RESULTS Name Result Date Reference Range STREP A (IN HOUSE) 2018-04-23 STREP A negative Control + Lot # [id number] Exp date 2018-11-28 PROCEDURES Procedure Date Ordered Result Body Site STREP A ASSAY W/OPTIC Apr 23, 2018 INSTRUCTIONS MEDICATIONS ADMINISTERED No Known Medications MEDICAL (GENERAL) HISTORY Type Description Date Medical History chronic bronchitis Medical History Pre-diabetes Medical History hip dislocation Surgical History bladder stretched Surgical History pilonidal cyst excision Hospitalization History past surgery Hospitalization History Kidney issues as a child Hospitalization History child
--- OUTSIDE RECORDS SUMMARY | 2018-07-27 13:12 | XMS REPORT ---
Author Author ENIO ZIMMERMAN Organization [facility] Address [address] [place] [address] Care Team Providers Care Lockstitch Tunnel Elastic Operator Name Role Phone ENIO ZIMMERMAN Unavailable PROBLEMS Unknown Problems ALLERGIES No Information ENCOUNTERS Encounter Location Date Diagnosis [place] [id number] [place] [id number] [place] [address] Sep, BMI 45.0-49.9, adult Z68.42 and Ingrowing nail with infection L60.0 [facility] [id number] [place] [address] Sep, [place] [address] [address] Sep, Ingrowing nail with infection L60.0 [facility] [address] [address] Jul, BMI 45.0-49.9, adult Z68.42 and Right hip pain M25.551 [place] [address] [id number] [place] [address] Dec, Acute seasonal allergic rhinitis due to pollen J30.1 [facility] [id number] [place] [address] Aug, Encounter for test, result unknown Z32.00 [place] [address] [address] Mar, IMMUNIZATIONS No Known Immunizations SOCIAL HISTORY Never Assessed REASON FOR VISIT referral PLAN OF CARE VITAL SIGNS MEDICATIONS Unknown Medications RESULTS No Results PROCEDURES No Known procedures INSTRUCTIONS MEDICATIONS ADMINISTERED No Known Medications MEDICAL (GENERAL) HISTORY Type Description Date Medical History chronic bronchitis Medical History Pre-diabetes Medical History hip dislocation Surgical History bladder stretched Surgical History pilonidal cyst excision Hospitalization History past surgery Hospitalization History Kidney issues as a child Hospitalization History child
--- OUTSIDE RECORDS SUMMARY | 2018-07-27 13:12 | XMS REPORT ---
Author Author ENIO ZIMMERMAN Organization [facility] [place] Address [address] [place] [address] Care Team Providers Care New Product Trainer Name Role Phone ENIO ZIMMERMAN Unavailable PROBLEMS Unknown Problems ALLERGIES Substance Reaction Event Type Date Status numbing ear drops Unknown Non Drug Allergy Sep, Active ENCOUNTERS Encounter Location Date Diagnosis [place] [address] [address] Sep, BMI 45.0-49.9, adult Z68.42 and Ingrowing nail with infection L60.0 [facility] [place] [address] [address] Sep, [facility] [place] [address] [address] Sep, Ingrowing nail with infection L60.[address] [facility] [address] [address] Jul, BMI 45.0-49.9, adult Z68.42 and Right hip pain M25.551 [place] [address] [address] Dec, Acute seasonal allergic rhinitis due to pollen J30.1 [facility] [place] [id number] [place] [address] Aug, Encounter for test, result unknown Z32.00 [place] [address] [address] Mar, IMMUNIZATIONS No Known Immunizations SOCIAL HISTORY Never Assessed REASON FOR VISIT possible engrown Toenails on both big toes Edmar Judd MA PLAN OF CARE VITAL SIGNS Height 68 in 2017-10-02 Weight 300 lbs 2017-10-02 Temperature 97.8 degrees Fahrenheit 2017-10-02 Heart Rate 90 bpm 2017-10-02 Respiratory Rate 20 2017-10-02 BMI 45.61 kg/m2 2017-10-02 Blood pressure systolic 130 mmHg 2017-10-02 Blood pressure diastolic 78 mmHg 2017-10-02 MEDICATIONS Medication Instructions Dosage Frequency Start Date End Date Duration Status Fluticasone Propionate 50 MCG/ACT Nasally Once a day 1 spray in each nostril 24h Dec, 10 days Not-Taking Keflex 500 mg Orally 4 times a day 1 capsule 6h Sep, Sep, 10 day(s) Active RESULTS No Results PROCEDURES No Known procedures INSTRUCTIONS MEDICATIONS ADMINISTERED No Known Medications MEDICAL (GENERAL) HISTORY Type Description Date Medical History chronic bronchitis Medical History Pre-diabetes Medical History hip dislocation Surgical History bladder stretched Surgical History pilonidal cyst excision Hospitalization History past surgery Hospitalization History Kidney issues as a child Hospitalization History child
--- OUTSIDE RECORDS SUMMARY | 2018-07-27 13:12 | XMS REPORT ---
Author Author KELSEY MCNEAL Organization [facility] Address [address] [place] [address] Care Team Providers Care Clinical Appeals Specialist Name Role Phone KELSEY MCNEAL Unavailable PROBLEMS No Known Problems ALLERGIES Substance Reaction Event Type Date Status numbing ear drops Unknown Non Drug Allergy May, Active ENCOUNTERS Encounter Location Date Diagnosis [facility] [address] [address] May, [facility] [address] [address] May, Ingrown left greater toenail L60.0 ; Dysfunction of right eustachian tube H69.81 and BMI 40.0-44.9, adult Z68.41 [facility] [address] [address] Mar, Acute suppurative otitis media of left ear with spontaneous rupture of tympanic membrane, recurrence not specified H66.012 and BMI 40.0-44.9 , adult Z68.41 [facility] [id number] [place] [address] Mar, BMI 40.0-44.9, adult Z68.41 ; Acute nasopharyngitis J00 and Sore throat J02.9 [facility] [id number] [place] [address] Sep, BMI 45.0-49.9, adult Z68.42 and Ingrowing nail with infection L60.0 [facility] [id number] [place] [address] Sep, [facility] [address] [address] Sep, Ingrowing nail with infection L60.0 [facility] [id number] [address] Jul, BMI 45.0-49.9, adult Z68.42 and Right hip pain M25.551 [facility] [address] [address] Dec, Acute seasonal allergic rhinitis due to pollen J30.1 [facility] [address] [address] Aug, Encounter for test, result unknown Z32.00 [place] [address] [place] [address] [id number] [place] [address] Mar, IMMUNIZATIONS No Known Immunizations SOCIAL HISTORY Never Assessed REASON FOR VISIT toe pain-CANDICE mallory, pt is complaining of her left toe is infected. started a couple of weeks ago PLAN OF CARE Activity Details Follow Up prn Reason: VITAL SIGNS Height 68 in 2018-05-28 Weight 294.4 lbs 2018-05-28 Temperature 98.5 degrees Fahrenheit 2018-05-28 Heart Rate 86 bpm 2018-05-28 Respiratory Rate 20 2018-05-28 Oximetry on room air:98 % 2018-05-28 BMI 44.76 kg/m2 2018-05-28 Blood pressure systolic 120 mmHg 2018-05-28 Blood pressure diastolic 80 mmHg 2018-05-28 MEDICATIONS Medication Instructions Dosage Frequency Start Date End Date Duration Status Keflex 500 mg Orally every 12 hrs 1 capsule 12h May, 10 day(s) Active Sudafed 12 Hour 120 mg Orally every 12 hrs 1 tablet as needed 12h May, 28 days Active RESULTS No Results PROCEDURES No Known procedures INSTRUCTIONS MEDICATIONS ADMINISTERED No Known Medications MEDICAL (GENERAL) HISTORY Type Description Date Medical History chronic bronchitis Medical History Pre-diabetes Medical History hip dislocation Surgical History bladder stretched Surgical History pilonidal cyst excision Hospitalization History past surgery Hospitalization History Kidney issues as a child Hospitalization History child
--- OUTSIDE RECORDS SUMMARY | 2018-07-27 13:12 | XMS REPORT ---
Author Author YADY SAPP [facility] Address [address] [place] [address] Care Team Providers Care Mill Tender Washing Name Role Phone YADY SAPP Unavailable PROBLEMS Unknown Problems ALLERGIES Substance Reaction Event Type Date Status numbing ear drops Unknown Non Drug Allergy Jul, Active ENCOUNTERS Encounter Location Date Diagnosis [facility] [address] [address] Sep, BMI 45.0-49.9, adult Z68.42 and Ingrowing nail with infection L60.0 [place] [id number] [place] [phone] Sep, [facility] [id number] [place] [phone] Sep, Ingrowing nail with infection L60.0 [facility] [id number] [place] [phone] Jul, BMI 45.0-49.9, adult Z68.42 and Right hip pain M25.551 [place] [id number] [place] [phone] Dec, Acute seasonal allergic rhinitis due to pollen J30.1 [facility] [id number] [place] [phone] Aug, Encounter for test, result unknown Z32.00 [place] [phone] [place] [phone] Mar, IMMUNIZATIONS No Known Immunizations SOCIAL HISTORY Never Assessed REASON FOR VISIT right hip pain for two months. [place] PLAN OF CARE Activity Details Follow Up prn Reason: VITAL SIGNS Height 68 in 2017-07-10 Weight 300.2 lbs 2017-07-10 Temperature 99.5 degrees Fahrenheit 2017-07-10 Heart Rate 98 bpm 2017-07-10 Respiratory Rate 18 2017-07-10 BMI 45.64 kg/m2 2017-07-10 Blood pressure systolic 130 mmHg 2017-07-10 Blood pressure diastolic 80 mmHg 2017-07-10 MEDICATIONS Medication Instructions Dosage Frequency Start Date End Date Duration Status Fluticasone Propionate 50 MCG/ACT Nasally Once a day 1 spray in each nostril 24h Dec, 10 days Not-Taking RESULTS Name Result Date Reference Range Xray : Hip, Right 2 views (IN HOUSE) 2017-07-10 PROCEDURES Procedure Date Ordered Result Body Site X-RAY EXAM HIP UNI 2-3 VIEWS Jul 10, 2017 INSTRUCTIONS MEDICATIONS ADMINISTERED No Known Medications MEDICAL (GENERAL) HISTORY Type Description Date Medical History chronic bronchitis Medical History Pre-diabetes Medical History hip dislocation Surgical History bladder stretched Surgical History pilonidal cyst excision Hospitalization History past surgery Hospitalization History Kidney issues as a child Hospitalization History child
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
[2018-07-27 13:44] LABS: BILIRUBIN,URINE NEGATIVE (NEGATIVE); CLARITY,URINE CLEAR; COLOR,URINE YELLOW; GLUCOSE, URINE (UA) NEGATIVE (NEGATIVE); KETONES,URINE NEGATIVE (NEGATIVE); LEUKOCYTE ESTERASE ,URINE 1+ (NEGATIVE); NITRITE,URINE NEGATIVE (NEGATIVE); PH,URINE 6 (5-9); PROTEIN,URINE 3+ (NEGATIVE); UROBILINOGEN,URINE NORMAL (NORMAL)
[2018-07-27 13:49] LABS: BASOPHILS % (AUTO) 0 % (0-10); EOSINOPHILS # (AUTO) 0.3 10^3/uL (0.0-0.3); EOSINOPHILS % (AUTO) 2 % (0-10); HEMATOCRIT 38 % (35-52); HEMOGLOBIN 12.5 G/DL (11.5-16.0); LYMPHOCYTES # (AUTO) 2.9 X 10^3 (1.0-4.0); LYMPHOCYTES % (AUTO) 24 % (12-44); MEAN CORPUSCULAR HEMOGLOBIN 26 PG (25-34); MEAN CORPUSCULAR HGB CONC 33 G/DL (32-36); MEAN CORPUSCULAR VOLUME 79 FL (80-99); MEAN PLATELET VOLUME 10.3 FL (7.4-10.4); MONOCYTES # (AUTO) 0.8 X 10^3 (0.0-1.0); MONOCYTES % (AUTO) 6 % (0-12); NEUTROPHILS # (AUTO) 8.2 X 10^3 (1.8-7.8); NEUTROPHILS % (AUTO) 67 % (42-75); PLATELET COUNT 380 10^3/uL (130-400); RED CELL DISTRIBUTION WIDTH 15.3 % (10.0-14.5); WHITE BLOOD COUNT 12.3 10^3/uL (4.3-11.0)
--- NOTE | 2018-07-27 13:56 | ED Abdominal Pain ---
General Chief Complaint: -Female Stated Complaint: POSS 3 WKS PREG/CRAMPS Nursing Triage Note: AMB TO ROOM ACCOMPIED BY MALE. PATIENT REPORTS IS APX 3 WEEKS PREG IN HAVING LOW ABD CRAMPING NO BLEEDING .IS HAVNG SOME BURNING ON URINATION. Sepsis Screen: No Definite Risk Source of Information: Patient Exam Limitations: No Limitations History of Present Illness Date Seen by Provider: Jul 27, 2018 Time Seen by Provider: 13:54 Initial Comments To ER with intermittent suprapubic abdominal cramping for the past 3 days. She has had nausea and dysuria. Her first day of last menstrual period was June 27. She had 3 positive tests at home. She is AB 1. At this time she has no cramping or pain. Timing/Duration: 1-2 Days Severity/Quality: Moderate Location: Suprapubic Radiation: No Radiation Activities at Onset: None Allergies and Home Medications Allergies Coded Allergies: antipyrine (Unverified Allergy, Unknown, 01/11/15) Home Medications Amoxicillin 875 Mg Tablet, 875 MG PO BID Prescribed by: BENNIE ALCALA on 09/19/16 2350 Cyclobenzaprine HCl 10 Mg Tablet, 10 MG PO Q8H PRN for SPASMS Prescribed by: ISABELL GUTIERREZ on 07/31/17 1151 Hydrocodone Bit/Acetaminophen 1 Tab Tab, 1 EACH PO Q4H PRN for pain Prescribed by: ISABELL GUTIERREZ on 07/31/17 1151 Patient Home Medication List Home Medication List Reviewed: Yes Review of Systems Review of Systems Constitutional: see HPI EENTM: No Symptoms Reported Respiratory: No Symptoms Reported Cardiovascular: No Symptoms Reported Gastrointestinal: See HPI, Abdominal Pain Genitourinary: No Symptoms Reported Musculoskeletal: no symptoms reported Skin: no symptoms reported Psychiatric/Neurological: No Symptoms Reported Endocrine: No Symptoms Reported Hematologic/Lymphatic: No Symptoms Reported Past Ykxjcbm-Klrzqa-Rmjsmo Hx Patient Social History Alcohol Use: Denies Use Recreational Drug Use: No Smoking Status: Never a Smoker Recent Foreign Travel: No Contact w/Someone Who Travel: No Recent Infectious Disease Expo: No Recent Hopitalizations: No Immunizations Up To Date Tetanus Booster (TDap): Less than 5yrs Seasonal Allergies Seasonal Allergies: Yes Past Medical History Surgeries: Yes ("bladder stretch", Pilonidal Cyst) Bladder Surgery Respiratory: Yes Chronic Bronchitis Cardiac: No Neurological: No Reproductive Disorders: No Female Reproductive Disorders: Menstrual Problems Genitourinary: Yes Kidney Infection, Bladder Infection Gastrointestinal: No Musculoskeletal: No Endocrine: Yes (GESTATIONAL DIABETES; OBESITY) HEENT: No Cancer: No Psychosocial: No Integumentary: No Blood Disorders: No Adverse Reaction/Blood Tranf: No Family Medical History No Pertinent Family Hx Physical Exam Vital Signs Vital Signs - First Documented 07/27/18 13:10 Temp 99.0 Pulse 86 Resp 18 B/P (MAP) 128/58 (81) Pulse Ox 98 O2 Delivery Room Air Capillary Refill : Less Than 3 Seconds Height/Weight/BMI Height: 5'8.00" Weight: 300lbs. oz. 136.629784zm; 42.57 BMI Method:Stated General Appearance: WD/WN, no apparent distress HEENT: PERRL/EOMI, normal ENT inspection Neck: non-tender, full range of motion Respiratory: no respiratory distress, no accessory muscle use Cardiovascular: regular rate, rhythm, no murmur Gastrointestinal: normal bowel sounds, non tender, soft; No tenderness Extremities: normal range of motion, non-tender Neurologic/Psychiatric: alert, normal mood/affect, oriented x 3 Skin: normal color, warm/dry Progress/Results/Core Measures Results/Orders Lab Results Laboratory Tests Test 07/27/18 13:34 07/27/18 13:40 Range/Units Urine Color YELLOW Urine Clarity CLEAR Urine pH 6 5-9 Urine Specific [place] 1.025 H 1.016-1.022 Urine Protein 3+ H NEGATIVE Urine Glucose (UA) NEGATIVE NEGATIVE Urine Ketones NEGATIVE NEGATIVE Urine Nitrite NEGATIVE NEGATIVE Urine Bilirubin NEGATIVE NEGATIVE Urine Urobilinogen NORMAL NORMAL MG/DL Urine Leukocyte Esterase 1+ H NEGATIVE Urine RBC (Auto) NEGATIVE NEGATIVE Urine RBC 2-5 H /HPF Urine WBC 5-10 H /HPF Urine Crystals NONE /LPF Urine Bacteria LARGE H /HPF Urine Casts NONE /LPF Urine Mucus MODERATE H /LPF Urine Culture Indicated YES White Blood Count 12.3 H 4.3-11.0 10^3/uL Red Blood Count 4.88 4.35-5.85 10^6/uL Hemoglobin 12.5 11.5-16.0 G/DL Hematocrit 38 35-52 % Mean Corpuscular Volume 79 L 80-99 FL Mean Corpuscular Hemoglobin 26 25-34 PG Mean Corpuscular Hemoglobin Concent 33 32-36 G/DL Red Cell Distribution Width 15.3 H 10.0-14.5 % Platelet Count 380 130-400 10^3/uL Mean Platelet Volume 10.3 7.4-10.4 FL Neutrophils (%) (Auto) 67 42-75 % Lymphocytes (%) (Auto) 24 12-44 % Monocytes (%) (Auto) 6 0-12 % Eosinophils (%) (Auto) 2 0-10 % Basophils (%) (Auto) 0 0-10 % Neutrophils # (Auto) 8.2 H 1.8-7.8 X 10^3 Lymphocytes # (Auto) 2.9 1.0-4.0 X 10^3 Monocytes # (Auto) 0.8 0.0-1.0 X 10^3 Eosinophils # (Auto) 0.3 0.0-0.3 10^3/uL Basophils # (Auto) 0.0 0.0-0.1 10^3/uL Human Chorionic Gonadotropin, Quant 24 H <5 MIU/ML My Orders Orders - MIARA DHILLON TECHNOLOGY PROFESSIONAL Cbc With Automated Diff (07/27/18 13:17) Hcg,Quantitative (07/27/18 13:17) Ua Culture If Indicated (07/27/18 13:17) Urine Culture (07/27/18 13:34) Vital Signs/I&O 07/27/18 13:10 Temp 99.0 Pulse 86 Resp 18 B/P (MAP) 128/58 (81) Pulse Ox 98 O2 Delivery Room Air Blood Pressure Mean: 81 Departure Impression Primary Impression: Threatened miscarriage in early Additional Impression: UTI (urinary tract infection) Qualified Codes: N30.00 - Acute cystitis without hematuria Disposition: 01 HOME, SELF-CARE Condition: Stable Departure-Patient Inst. Decision time for Depature: 14:30 Referrals: JACKY BLANKENSHIP MD (PCP/Family) Primary Care Physician Patient Instructions: Urinary Tract Infection, Adult (DC) Add. Discharge Instructions: 1. Your hCG level today was only 24. This could represent either very very early or miscarriage. Follow-up with Dr. Blankenship. Call tomorrow to have repeat hCG level drawn in 24-48 hours. Return to ER for severe pain or other concerns. AlL discharge instructions reviewed with patient and/or family. Voiced understanding. Scripts Cefuroxime Axetil (Cefuroxime) 250 Mg Tablet 250 MG PO BID, #10 TAB Prov: MAIRA DHILLON APRN 07/27/18 MAIRA DHILLON APRN Jul 27, 2018 13:56
[2018-07-27 13:58] LABS: BACTERIA,URINE LARGE /HPF
[2018-07-27] MEDS ORDERED: CEFU250T80 PO (14:32)
[2018-07-27 14:42] VITALS: BP 128/58
== END 2018-07-27 14:42 | disposition home or self-care (01) ==
LOC: EDUNIT# 13:06 → ER 13:08
DX: O20.0 Threatened abortion (principal); O23.41 Unspecified infection of urinary tract in pregnancy, first trimester; O99.211 Obesity complicating pregnancy, first trimester; Z88.8 Allergy status to other drugs, medicaments and biological substances; Z98.890 Other specified postprocedural states; Z87.09 Personal history of other diseases of the respiratory system; Z87.448 Personal history of other diseases of urinary system; Z3A.00 Weeks of gestation of pregnancy not specified
CPT/HCPCS: 36415; 81000; 84702; 85025; 87088

== ENCOUNTER 2018-08-03 14:33 | Emergency (ER) | payer SELFPAY ==
[~2018-08-03] VITALS: Ht 172.7 cm; Wt 136.1 kg
[~2018-08-03 14:33] MED LIST changes: +CEFU250T80 PO
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
[2018-08-03] MEDS ORDERED: PREN1TAB79 PO (14:52)
[2018-08-03 15:09] LABS: BILIRUBIN,URINE NEGATIVE (NEGATIVE); CLARITY,URINE VERY CLOUDY; COLOR,URINE RED; GLUCOSE, URINE (UA) NEGATIVE (NEGATIVE); KETONES,URINE 1+ (NEGATIVE); LEUKOCYTE ESTERASE ,URINE 2+ (NEGATIVE); NITRITE,URINE NEGATIVE (NEGATIVE); PH,URINE 8 (5-9); PROTEIN,URINE 3+ (NEGATIVE); UROBILINOGEN,URINE 1 MG/DL (NORMAL)
[2018-08-03 15:13] LABS: BACTERIA,URINE NEGATIVE /HPF; SQUAMOUS EPITHELIAL CELL,UR 0-2 /HPF
[2018-08-03 15:14] LABS: RBC,URINE TNTC /HPF
[2018-08-03 15:53] LABS: BASOPHILS % (AUTO) 0 % (0-10); EOSINOPHILS # (AUTO) 0.3 10^3/uL (0.0-0.3); EOSINOPHILS % (AUTO) 2 % (0-10); HEMATOCRIT 36 % (35-52); HEMOGLOBIN 12.1 G/DL (11.5-16.0); LYMPHOCYTES % (AUTO) 19 % (12-44); MEAN CORPUSCULAR HEMOGLOBIN 26 PG (25-34); MEAN CORPUSCULAR HGB CONC 34 G/DL (32-36); MEAN CORPUSCULAR VOLUME 78 FL (80-99); MEAN PLATELET VOLUME 10.4 FL (7.4-10.4); MONOCYTES # (AUTO) 0.8 X 10^3 (0.0-1.0); MONOCYTES % (AUTO) 5 % (0-12); NEUTROPHILS # (AUTO) 11.3 X 10^3 (1.8-7.8); NEUTROPHILS % (AUTO) 74 % (42-75); PLATELET COUNT 391 10^3/uL (130-400); RED CELL DISTRIBUTION WIDTH 15.2 % (10.0-14.5); WHITE BLOOD COUNT 15.4 10^3/uL (4.3-11.0)
--- NOTE | 2018-08-03 16:01 | Diagnostic Imaging Report ---
INDICATION: Bleeding and cramping with positive test. TECHNIQUE: Multiple real time montaño scale sonographic images were obtained of the pelvis, endovaginally. CORRELATION STUDY: None. FINDINGS: The uterus measures 9.4 x 6.2 x 5.2 cm. Endometrial thickness is approximately 12 mm. There is no definitive intrauterine fluid collection to suggest the presence of a gestational sac. Imaging of the adnexa demonstrates right ovary 3.2 x 2.9 x 2.4 cm. Left ovary 2.1 x 2.9 cm. Hypoechoic mass in the right ovary is compatible with a cyst, 1.6 x 1.4 cm. Blood flow is demonstrated to both ovaries. No significant free pelvic fluid. IMPRESSION: 1. No evidence for a discrete intrauterine or extrauterine . 2. Right ovarian cyst is present which may be physiologic. 3. Followup imaging and correlation with serial beta hCGs as clinically warranted. Dictated by: Dictated on workstation # [id number]
[2018-08-03 16:12] LABS: BAND NEUTROPHILS 0 %; BASOPHILS % (MANUAL) 0 %; EOSINOPHILS % (MANUAL) 1 %; LYMPHOCYTES % (MANUAL) 25 %; MONOCYTES % (MANUAL) 6 %; NEUTROPHILS % (MANUAL) 68 %; RBC MORPH NORMAL
[2018-08-03 16:14] LABS: ALANINE AMINOTRANSFERASE 15 U/L (0-55); ALBUMIN 3.8 GM/DL (3.2-4.5); ALKALINE PHOSPHATASE 100 U/L (40-136); BILIRUBIN,TOTAL 0.2 MG/DL (0.1-1.0); BUN/CREATININE RATIO 21; CALCIUM 8.5 MG/DL (8.5-10.1); CARBON DIOXIDE 21 MMOL/L (21-32); CHLORIDE 108 MMOL/L (98-107); CREATININE SERUM 0.57 MG/DL (0.60-1.30); GFR ESTIMATED > 60; GLUCOSE 106 MG/DL (70-105); POTASSIUM 3.9 MMOL/L (3.6-5.0); SODIUM 140 MMOL/L (135-145); TOTAL PROTEIN 6.7 GM/DL (6.4-8.2)
--- NOTE | 2018-08-03 16:33 | ED GU-Female ---
General Chief Complaint: -Female Stated Complaint: 4 WKS PREG/CRAMPING/BLEEDING Nursing Triage Note: PT REPORTS SPOTTING STARTING YESTERDAY WITH CRAMPING. BLEEDING HEAVIER TODAY. PT IS APPROX 4 WEEKS . Nursing Sepsis Screen: No Definite Risk Source: patient Exam Limitations: no limitations History of Present Illness Date Seen by Provider: Aug 03, 2018 Time Seen by Provider: 14:50 Initial Comments 23-year-old female who presents to the emergency room with complaints of vaginal bleeding/spotting and suprapubic abdominal cramping that started yesterday evening. She reports that the bleeding is heavier today with small clots. She reports that she is around 4-5 weeks . 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 She has an appointment scheduled on 08/11/18. Reports that she has not saturated 1 entire pad yet. Timing/Duration: yesterday Associated Symptoms: denies symptoms Allergies and Home Medications Allergies Coded Allergies: antipyrine (Unverified Allergy, Unknown, 01/11/15) Home Medications Cefuroxime Axetil 250 Mg Tablet, 250 MG PO BID Prescribed by: MAIRA DHILLON on 07/27/18 1432 Vit W-Ca,Fe,FA(<1 mg) 1 Each Tablet, 1 EACH PO DAILY, (Reported) Patient Home Medication List Home Medication List Reviewed: Yes Review of Systems Review of Systems Constitutional: no symptoms reported, see HPI Genitourinary: see HPI, pain, other (vaginal bleeding) All Other Systemes Reviewed Negative Unless Noted: Yes Past Zeqmyfm-Lsjjcy-Reeavo Hx Past Med/Social Hx: Reviewed Nursing Past Med/Soc Hx Patient Social History Alcohol Use: Occasionally Uses Recreational Drug Use: No Smoking Status: Never a Smoker Recent Foreign Travel: No Contact w/Someone Who Travel: No Recent Infectious Disease Expo: No Recent Hopitalizations: No Immunizations Up To Date Tetanus Booster (TDap): Less than 5yrs Date of Influenza Vaccine: Mar 31, 2018 Seasonal Allergies Seasonal Allergies: Yes Past Medical History Surgeries: Yes ("bladder stretch", Pilonidal Cyst) Bladder Surgery Respiratory: Yes Chronic Bronchitis Cardiac: No Neurological: No Last Menstrual Period: Jun 27, 2018 Hx : 3 Hx Para: 1 Reproductive Disorders: No Female Reproductive Disorders: Menstrual Problems Genitourinary: Yes Kidney Infection, Bladder Infection Gastrointestinal: No Musculoskeletal: No Endocrine: Yes (GESTATIONAL DIABETES; OBESITY) HEENT: No Cancer: No Psychosocial: No Integumentary: No Blood Disorders: No Adverse Reaction/Blood Tranf: No Family Medical History Reviewed Nursing Family Hx No Pertinent Family Hx Physical Exam Vital Signs Vital Signs - First Documented 08/03/18 14:44 Temp 97.8 Pulse 90 Resp 16 B/P (MAP) 153/92 (112) Pulse Ox 98 O2 Delivery Room Air Capillary Refill : Less Than 3 Seconds Height, Weight, BMI Height: 5'8.00" Weight: 300lbs. oz. 136.026200zi; 42.57 BMI Method:Stated General Appearance: WD/WN, no apparent distress Cardiovascular: normal peripheral pulses, regular rate, rhythm, no edema, no gallop, no JVD, no murmur Respiratory: chest non-tender, lungs clear, normal breath sounds, no respiratory distress, no accessory muscle use, respiratory distress Gastrointestinal: normal bowel sounds, non tender, soft, no organomegaly, no pulsatile mass, abnormal bowel sounds Extremities: normal capillary refill Neurologic/Psychiatric: alert, normal mood/affect, oriented x 3 Skin: normal color, warm/dry Progress/Results/Core Measures Suspected Sepsis Recent Fever Within 48 Hours: No Infection Criteria Present: None New/Unexplained Altered Menta: No Sepsis Screen: No Definite Risk SIRS Temperature:97.8 Pulse: 90 Respiratory Rate: 16 Laboratory Tests 08/03/18 15:45: White Blood Count 15.4H Blood Pressure 153 /92 Mean: 112 Laboratory Tests 08/03/18 15:45: Creatinine 0.57L, Platelet Count 391, Total Bilirubin 0.2 Results/Orders Lab Results My Orders Vital Signs/I&O Capillary Refill : Less Than 3 Seconds Blood Pressure Mean: 112 Diagnostic Imaging Diagonstic Imaging: Ultrasound Plain Films/CT/US/NM/MRI: pelvis Comments NAME: [facility] REC#: [id number] PT STATUS: DEP ER : 1995 PHYSICIAN: MONIE MANZANARES ADMIT DATE: 08/03/18/ER Signed Date of Exam: 08/03/18 US OB TRANSVAGINAL [id number] INDICATION: Bleeding and cramping with positive test. TECHNIQUE: Multiple real time montaño scale sonographic images were obtained of the pelvis, endovaginally. CORRELATION STUDY: None. FINDINGS: The uterus measures 9.4 x 6.2 x 5.2 cm. Endometrial thickness is approximately 12 mm. There is no definitive intrauterine fluid collection to suggest the presence of a gestational sac. Imaging of the adnexa demonstrates right ovary 3.2 x 2.9 x 2.4 cm. Left ovary 2.1 x 2.9 cm. Hypoechoic mass in the right ovary is compatible with a cyst, 1.6 x 1.4 cm. Blood flow is demonstrated to both ovaries. No significant free pelvic fluid. IMPRESSION: 1. No evidence for a discrete intrauterine or extrauterine . 2. Right ovarian cyst is present which may be physiologic. 3. Followup imaging and correlation with serial beta hCGs as clinically warranted. Dictated by: Dictated on workstation # [id number] Dict: 08/03/18 1554 Trans: 08/04/18 0821 Interpreted by: MISAEL JACOB DO Electronically signed by: MISAEL JACOB DO 08/04/18 0821 Reviewed: Reviewed by Me Departure Impression Primary Impression: Vaginal bleeding before 22 weeks gestation Additional Impression: Threatened miscarriage in early Disposition: HOME, SELF-CARE Condition: Stable/Unchanged Departure-Patient Inst. Decision time for Depature: 16:31 Referrals: JACKY BLANKENSHIP MD (PCP/Family) Primary Care Physician Patient Instructions: Threatened Miscarriage (DC) Add. Discharge Instructions: Follow-up with Dr. Blankenship by calling tomorrow morning for an appointment time to have your levels rechecked. Return back to the emergency room for worsening vaginal bleeding that is more than 1 saturated pad per hour. Or pain that is uncontrolled by Tylenol as directed by the bottle. All discharge instructions reviewed with patient and/or family. Voiced understanding. Work/School Note: Work Release Form Date Seen in the Emergency Department: Aug 03, 2018 Return to Work: Aug 04, 2018 Restrictions: No Restrictions MONIE MANZANARES Aug 03, 2018 16:33
[2018-08-03 17:02] VITALS: BP 139/98
== END 2018-08-03 17:04 | disposition home or self-care (01) ==
LOC: EDUNIT# 14:33 → ER 14:34
DX: O20.0 Threatened abortion (principal); O99.211 Obesity complicating pregnancy, first trimester; Z88.8 Allergy status to other drugs, medicaments and biological substances; Z87.448 Personal history of other diseases of urinary system; Z87.09 Personal history of other diseases of the respiratory system; Z3A.01 Less than 8 weeks gestation of pregnancy
CPT/HCPCS: 36415; 76817; 80053; 81000; 84702; 85007; 85027

== ENCOUNTER 2019-03-22 18:57 | Emergency (ER) | payer SELFPAY ==
[~2019-03-22] VITALS: Ht 173 cm; Wt 135.0 kg
[~2019-03-22 18:57] MED LIST changes: +PREN1TAB79 PO
[2019-03-22] MEDS ORDERED: morphine INJ 10 MG/ML 1ML (SYR OR VIAL) IVP STA (19:47)
[2019-03-22] MEDS ORDERED: LACTATED RINGERS 1,000 ML IV STA (19:47)
[2019-03-22 19:52] LABS: BASOPHILS % (AUTO) 0 % (0-10); EOSINOPHILS % (AUTO) 1 % (0-10); HEMATOCRIT 40 % (35-52); HEMOGLOBIN 13.1 G/DL (11.5-16.0); LYMPHOCYTES % (AUTO) 14 % (12-44); MEAN CORPUSCULAR HEMOGLOBIN 27 PG (25-34); MEAN CORPUSCULAR HGB CONC 33 G/DL (32-36); MEAN CORPUSCULAR VOLUME 81 FL (80-99); MEAN PLATELET VOLUME 10.5 FL (7.4-10.4); MONOCYTES % (AUTO) 4 % (0-12); NEUTROPHILS # (AUTO) 10.5 X 10^3 (1.8-7.8); NEUTROPHILS % (AUTO) 81 % (42-75); PLATELET COUNT 322 10^3/uL (130-400); RED CELL DISTRIBUTION WIDTH 14.8 % (10.0-14.5); WHITE BLOOD COUNT 12.9 10^3/uL (4.3-11.0)
[2019-03-22 19:53] LABS: EOSINOPHILS # (AUTO) 0.1 10^3/uL (0.0-0.3); LYMPHOCYTES # (AUTO) 1.8 X 10^3 (1.0-4.0); MONOCYTES # (AUTO) 0.5 X 10^3 (0.0-1.0)
[2019-03-22] MEDS ORDERED: PIPERACILLIN/TAZOBACTAM (BULK) 3.375 GM in NS (IVPB) 100 ML IV ONE (20:00)
[2019-03-22] MEDS ORDERED: ONDANSETRON 4 MG/2 ML (SDV) Z0FRAN IVP ONE (20:00)
[2019-03-22] MEDS ORDERED: PIPERACILLIN/TAZO 4.5 GM VIAL (ZOSYN) IV ONE (20:01)
[2019-03-22] MEDS ORDERED: NS (IVPB) 0 ML ONE (20:02)
[2019-03-22 20:06] LABS: CARBON DIOXIDE 26 MMOL/L (21-32); CHLORIDE 100 MMOL/L (98-107); POTASSIUM 3.9 MMOL/L (3.6-5.0); SODIUM 137 MMOL/L (135-145)
[2019-03-22 20:07] LABS: ALANINE AMINOTRANSFERASE 16 U/L (0-55); ALBUMIN 3.9 GM/DL (3.2-4.5); ALKALINE PHOSPHATASE 99 U/L (40-136); BILIRUBIN,TOTAL 0.3 MG/DL (0.1-1.0); BUN/CREATININE RATIO 22; CALCIUM 8.7 MG/DL (8.5-10.1); CREATININE SERUM 0.55 MG/DL (0.60-1.30); GFR ESTIMATED > 60; GLUCOSE 95 MG/DL (70-105); TOTAL PROTEIN 7.1 GM/DL (6.4-8.2)
[2019-03-22] MEDS ORDERED: NS (IVPB) 100 ML ONE (20:14)
[2019-03-22 20:24] LABS: LIPASE 15 U/L (8-78)
--- NOTE | 2019-03-22 20:26 | ED Abdominal Pain ---
General Chief Complaint: Abdominal/GI Problems Stated Complaint: STOMACH PAIN Nursing Triage Note: PT AMBULATE TO ROOM FS06 WITHOUT DIFFICULTY WITH C/O ABD PAIN STARTING YESTERDAY. PT C/O N/V AND CONSTIPATION. PT STATES PAIN WOULD COME AND GO BUT IS NOT CONSTANT. Sepsis Screen: No Definite Risk History of Present Illness Date Seen by Provider: Mar 22, 2019 Time Seen by Provider: 19:00 Initial Comments The patient is a 23-year-old female with a history of morbid obesity but who is otherwise healthy. She presents with concern for acute onset of sharp, focal, crampy intermittent epigastric discomfort with radiation to the right upper quadrant of the abdomen, all with onset yesterday during the daytime. Patient states prior to yesterday she has never had this pain before. Discomfort is nonradiating and seems to be worse with and after food and otherwise nothing seems to make it better or worse. Patient reports spasms of several minutes of discomfort followed by near resolution of pain. Associated nausea with 1 episode of nonbloody vomiting. Associated fever here. No associated hematemesis, hematochezia, melena, cough, shortness of breath or chest pain, lower abdominal pain, flank pain, back pain, dysuria or hematuria, changes in bowel habits aside from some mild constipation over the last couple of days, although patient notes a small bowel movement this morning. Patient reports that she is "currently miscarrying," having minimal vaginal bleeding which is ongoing and has been for about the last week. She states the bleeding is actually tapering off now. When I ask what she means by "miscar rying" she states that she had a positive test at home in [place] where she just moved from and then went to the hospital last week in [place] and evidently had negative testing there. Patient is pleasantly and appropriately interactive and alert and oriented 4 and in no acute distress upon initial assessment. She states pain is currently 3 out of 10 in severity. No therapy for discomfort prior to arrival. Vital signs appropriate aside from temperature of 38.2C. Allergies and Home Medications Allergies Coded Allergies: antipyrine (Unverified Allergy, Unknown, 01/11/15) Home Medications Cefuroxime Axetil 250 Mg Tablet, 250 MG PO BID Prescribed by: MAIRA DHILLON on 07/27/18 1432 Vit W-Ca,Fe,FA(<1 mg) 1 Each Tablet, 1 EACH PO DAILY, (Reported) Patient Home Medication List Home Medication List Reviewed: Yes Review of Systems Review of Systems Constitutional: see HPI All Other Systems Reviewed Negative Unless Noted: Yes Past Wuqsmap-Luruaj-Kaqnck Hx Past Med/Social Hx: Reviewed Nursing Past Med/Soc Hx Patient Social History Alcohol Use: Occasionally Uses Alcohol Beverage of Choice: Wine Recreational Drug Use: No Smoking Status: Current Everyday Smoker Type Used: Cigars 2nd Hand Smoke Exposure: Yes Recent Foreign Travel: No Contact w/Someone Who Travel: No Recent Infectious Disease Expo: No Recent Hopitalizations: No Physical Abuse: No Sexual Abuse: No Mistreated: No Fear: No Immunizations Up To Date Tetanus Booster (TDap): Less than 5yrs Date of Influenza Vaccine: Mar 31, 2018 Seasonal Allergies Seasonal Allergies: Yes Past Medical History Surgeries: Yes ("bladder stretch", Pilonidal Cyst) Bladder Surgery Respiratory: Yes Chronic Bronchitis Cardiac: No Neurological: No Reproductive Disorders: No Female Reproductive Disorders: Menstrual Problems Genitourinary: Yes Kidney Infection, Bladder Infection Gastrointestinal: No Musculoskeletal: No Endocrine: Yes (GESTATIONAL DIABETES; OBESITY) HEENT: No Cancer: No Psychosocial: No Integumentary: No Blood Disorders: No Adverse Reaction/Blood Tranf: No Family Medical History Reviewed Nursing Family Hx No Pertinent Family Hx Physical Exam Vital Signs Vital Signs - First Documented 03/22/19 19:22 Temp 38.2 Pulse 80 Resp 18 B/P (MAP) 123/81 (95) Pulse Ox 97 O2 Delivery Room Air Capillary Refill : Less Than 3 Seconds Height/Weight/BMI Height: 5'8.00" Weight: 300lbs. oz. 136.591416nl; 45.00 BMI Method:Stated General Appearance: no apparent distress Exam Comments This is a morbidly obese young female appearing nontoxic and in no acute distress. Head is normocephalic and atraumatic. Neck is supple and n ontender. Oropharynx is moist. Lungs are clear to auscultation at all stations. There is a normal S1 and S2 without rubs or gallops and capillary refill is appropriate, less than 2 seconds globally. Abdomen is soft and nondistended with mild epigastric and right upper quadrant tenderness to palpation without rebound or guarding. Skin is warm and dry without cyanosis, clubbing or edema. Psychiatrically, the patient demonstrates appropriate mood and affect and is alert. Focused Exam Lactate Level 03/22/19 19:42: Lactic Acid Level 1.25 Lactic Acid Level Laboratory Tests Test 03/22/19 19:42 Lactic Acid Level 1.25 MMOL/L (0.50-2.00) Progress/Results/Core Measures Results/Orders Lab Results Laboratory Tests Test 03/22/19 19:36 03/22/19 19:42 03/22/19 21:15 Range/Units White Blood Count 12.9 H 4.3-11.0 10^3/uL Red Blood Count 4.87 4.35-5.85 10^6/uL Hemoglobin 13.1 11.5-16.0 G/DL Hematocrit 40 35-52 % Mean Corpuscular Volume 81 80-99 FL Mean Corpuscular Hemoglobin 27 25-34 PG Mean Corpuscular Hemoglobin Concent 33 32-36 G/DL Red Cell Distribution Width 14.8 H 10.0-14.5 % Platelet Count 322 130-400 10^3/uL Mean Platelet Volume 10.5 H 7.4-10.4 FL Neutrophils (%) (Auto) 81 H 42-75 % Lymphocytes (%) (Auto) 14 12-44 % Monocytes (%) (Auto) 4 0-12 % Eosinophils (%) (Auto) 1 0-10 % Basophils (%) (Auto) 0 0-10 % Neutrophils # (Auto) 10.5 H 1.8-7.8 X 10^3 Lymphocytes # (Auto) 1.8 1.0-4.0 X 10^3 Monocytes # (Auto) 0.5 0.0-1.0 X 10^3 Eosinophils # (Auto) 0.1 0.0-0.3 10^3/uL Basophils # (Auto) 0.0 0.0-0.1 10^3/uL Sodium Level 137 135-145 MMOL/L Potassium Level 3.9 3.6-5.0 MMOL/L Chloride Level 100 98-107 MMOL/L Carbon Dioxide Level 26 21-32 MMOL/L Anion Gap 11 5-14 MMOL/L Blood Urea Nitrogen 12 7-18 MG/DL Creatinine 0.55 L 0.60-1.30 MG/DL Estimat Glomerular Filtration Rate > 60 BUN/Creatinine Ratio 22 Glucose Level 95 70-105 MG/DL Calcium Level 8.7 8.5-10.1 MG/DL Corrected Calcium 8.8 8.5-10.1 MG/DL Total Bilirubin 0.3 0.1-1.0 MG/DL Aspartate Amino Transf (AST/SGOT) 14 5-34 U/L Alanine Aminotransferase (ALT/SGPT) 16 0-55 U/L Alkaline Phosphatase 99 40-136 U/L Total Protein 7.1 6.4-8.2 GM/DL Albumin 3.9 3.2-4.5 GM/DL Lipase 15 8-78 U/L Human Chorionic Gonadotropin, Quant < 5 <5 MIU/ML Lactic Acid Level 1.25 0.50-2.00 MMOL/L Urine Color YELLOW Urine Clarity CLOUDY Urine pH 7.0 5-9 Urine Specific [place] <=1.005 1.016-1.022 Urine Protein NEGATIVE NEGATIVE Urine Glucose (UA) NEGATIVE NEGATIVE Urine Ketones NEGATIVE NEGATIVE Urine Nitrite NEGATIVE NEGATIVE Urine Bilirubin NEGATIVE NEGATIVE Urine Urobilinogen 0.2 NORMAL MG/DL Urine Leukocyte Esterase NEGATIVE NEGATIVE Urine RBC (Auto) 3+ H NEGATIVE Urine RBC 50-100 H /HPF Urine WBC NONE /HPF Urine Squamous Epithelial Cells 5-10 /HPF Urine Crystals NONE /LPF Urine Bacteria NEGATIVE /HPF Urine Casts NONE /LPF Urine Mucus NEGATIVE /LPF Urine Culture Indicated NO My Orders Orders - STACY SANTANA MD Comprehensive Metabolic Panel (03/22/19 19:47) Lipase (03/22/19 19:47) Ua Culture If Indicated (03/22/19 19:47) Ed Iv/Invasive Line Start (03/22/19 19:47) Cbc With Automated Diff (03/22/19 19:47) Ct Abdomen/Pelvis W (03/22/19 19:47) Hcg,Quantitative (03/22/19 19:47) Ondansetron Injection (Zofran Injectio (03/22/19 20:00) Lactated Ringers (Lr 1000 Ml Iv Solution (03/22/19 19:47) Morphine Injection (Morphine Injection (03/22/19 19:47) Blood Culture (03/22/19 19:59) Lactic Acid Analyzer (03/22/19 19:59) Piperacillin/Tazobactam (Bulk) (Zosyn In (03/22/19 20:00) Piperacillin Sodium/Tazobactam (Zosyn Vi (03/22/19 20:01) Ns (Ivpb) (Sodium Chloride 0.9%) (03/22/19 20:02) Ns (Ivpb) (Sodium Chloride 0.9% Ivpb Bag (03/22/19 20:14) Iohexol Injection (Omnipaque 350 Mg/Ml 1 (03/22/19 20:30) Received Contrast (Hold Metformin- Contr (03/22/19 20:30) Sodium Chloride Flush (Catheter Flush Sy (03/22/19 20:30) Ns (Ivpb) (Sodium Chloride 0.9% Ivpb Bag (03/22/19 20:30) Blood Culture (03/22/19 21:35) Medications Given in ED Current Medications Medications Dose Ordered Sig/Clara Route Start Time Stop Time Status Last Admin Dose Admin Ondansetron HCl 4 mg ONCE ONCE IVP 03/22/19 20:00 03/22/19 20:01 DC 03/22/19 20:04 4 MG Piperacillin Sod/ Tazobactam Sod 3.375 gm/Sodium Chloride 115 ml @ 240 mls/hr ONCE ONCE IV 03/22/19 20:00 03/22/19 20:28 DC 03/22/19 20:19 240 MLS/HR Sodium Chloride 100 ml ONCE ONCE IV 03/22/19 20:30 03/22/19 20:58 DC 03/22/19 20:19 100 ML Vital Signs/I&O 03/22/19 03/22/19 19:22 20:44 Temp 38.2 38.2 Pulse 80 89 Resp 18 18 B/P (MAP) 123/81 (95) 134/78 Pulse Ox 97 O2 Delivery Room Air Room Air Blood Pressure Mean: 95 Progress Progress Note : Time: 19:05 Progress Note Clinical examination generally reassuring. 23-year-old obese female who presents with right upper quadrant and epigastric discomfort worse with food times one day in association with nausea and a fever here. Right upper quadrant ultrasound not readily available at this time so we will start with labs and a CT scan of the abdomen and pelvis. Will further investigate reported "miscarriage" with quantitative hormone level and will send for records from a hospital in [place] where patient was seen last week. We will draw cultures and send lactate and then give a dose of Zosyn given fever. We'll treat pain and give IV fluids. We will then reevaluate. Update 5: Patient is feeling quite a bit better upon reassessment. Large workup is generally without evidence of acute process, including advanced imaging of the abdomen and pelvis. The patient has a negative quantitative hormone level. As patient presented with upper abdominal discomfort, vomiting and fever, most likely scenario would likely be a gastroenteritis. Given fever we'll go ahead and cover with some ciprofloxacin although feel that viral process most likely possibility here. We will discharge with medication for pain and nausea in addition. The patient is advised to follow up very closely with primary care in the clinic in the next 1-2 days and understands that if she feels worse instead of better or develops other new symptoms of concern that she will need to return immediately for reevaluation. All questions are answered. Departure Impression Primary Impression: Right upper quadrant abdominal pain Additional Impressions: Epigastric abdominal pain Fever Disposition: HOME, SELF-CARE Condition: Improved Departure-Patient Inst. Decision time for Depature: 21:48 Referrals: JACKY BLANKENSHIP MD (PCP/Family) Primary Care Physician Patient Instructions: No Instuctions Given Scripts Ondansetron (Ondansetron Odt) 4 Mg Tab.rapdis 4 MG PO Q8H for Vomiting, #10 TAB Prov: STACY SANTANA MD 03/22/19 Dicyclomine HCl (Dicyclomine HCl) 10 Mg Capsule 10 MG PO Q8H for Abdominal Pain, #20 CAP Prov: STACY SANTANA MD 03/22/19 Acetaminophen (Tylenol) 325 Mg Capsule 650 MG PO Q6H for Pain, #60 CAP Prov: STACY SANTANA MD 03/22/19 Ciprofloxacin HCl (Ciprofloxacin HCl) 500 Mg Tablet 500 MG PO BID for 7 Days, #14 TAB Prov: STACY SANTANA MD 03/22/19 STACY SANTANA MD Mar 22, 2019 20:26
[2019-03-22] MEDS ORDERED: IOHEXOL 350 MG/ML 100 ML (OMNIPAQUE 350) VIAL IV ONE (20:30)
[2019-03-22] MEDS ORDERED: HOLD METFORMIN - RECEIVED CONTRAST 20 ML VIAL IV SCH (20:30)
[2019-03-22] MEDS ORDERED: NS 100 ML (IVPB) BAG IV ONE (20:30)
[2019-03-22] MEDS ORDERED: CATHETER FLUSH 10 ML SYR IV PRN (20:30)
--- NOTE | 2019-03-22 20:36 | NUR ---
MEDICAL RELEASE FORM SIGNED BY PT. RELEASE FAXED TO [facility] IN [place], [place] TO GET PT VISIT INFORMATION.
--- NOTE | 2019-03-22 21:28 | Diagnostic Imaging Report ---
PROCEDURE: CT abdomen and pelvis with contrast. TECHNIQUE: Multiple contiguous axial images were obtained through the abdomen and pelvis after administration of intravenous contrast. Auto Exposure Controls were utilized during the CT exam to meet ALARA standards for radiation dose reduction. INDICATION: Abdominal pain with nausea and emesis. COMPARISON: Examination of 04/19/2014. FINDINGS: There is low-density throughout the liver indicating steatosis. No gallbladder, pancreatic, adrenal gland or splenic abnormality is identified. No renal abnormality is seen. There is no free fluid seen within the abdomen or pelvis. The appendix is unremarkable. Partially opacified urinary bladder has a normal appearance. Mild diffuse prominent lymph nodes are again seen throughout the mesentery without significant change. IMPRESSION: Stable CT scan of the abdomen and pelvis without evidence of acute abnormality. Dictated by: Dictated on workstation # [id number]
[2019-03-22 21:33] LABS: BACTERIA,URINE NEGATIVE /HPF; BILIRUBIN,URINE NEGATIVE (NEGATIVE); CLARITY,URINE CLOUDY; COLOR,URINE YELLOW; GLUCOSE, URINE (UA) NEGATIVE (NEGATIVE); KETONES,URINE NEGATIVE (NEGATIVE); LEUKOCYTE ESTERASE ,URINE NEGATIVE (NEGATIVE); NITRITE,URINE NEGATIVE (NEGATIVE); PROTEIN,URINE NEGATIVE (NEGATIVE); RBC,URINE 50-100 /HPF; UROBILINOGEN,URINE 0.2 MG/DL (NORMAL)
[2019-03-22] MEDS ORDERED: ONDA4TAB11 PO (21:51)
[2019-03-22] MEDS ORDERED: ACET325C5 PO (21:51)
[2019-03-22] MEDS ORDERED: DICY10CA12 PO (21:51)
[2019-03-22] MEDS ORDERED: CIPR500T4 PO (21:51)
[2019-03-22 22:10] VITALS: BP 119/78
== END 2019-03-22 22:10 | disposition home or self-care (01) ==
LOC: EDUNIT# 18:57 → ER FS 18:58
DX: R10.11 Right upper quadrant pain (principal); R10.13 Epigastric pain; R50.9 Fever, unspecified; E66.01 Morbid (severe) obesity due to excess calories; F17.290 Nicotine dependence, other tobacco product, uncomplicated; Z88.6 Allergy status to analgesic agent
CPT/HCPCS: 36415; 74177; 80053; 81000; 83605; 83690; 84702; 85025; 87040

== ENCOUNTER 2019-06-20 17:59 | Emergency (ER) | payer MEDICAID, OTHER ==
[~2019-06-20] VITALS: Ht 172.7 cm; Wt 139.0 kg
[~2019-06-20 17:59] MED LIST changes: +ACET325C5 PO; +CIPR500T4 PO; +DICY10CA12 PO; +ONDA4TAB11 PO
[2019-06-20 18:40] LABS: AMORPHOUS SEDIMENT,UR FEW AMOR URATES /LPF; BACTERIA,URINE FEW /HPF; BILIRUBIN,URINE NEGATIVE (NEGATIVE); CLARITY,URINE SL CLOUDY; COLOR,URINE YELLOW; GLUCOSE, URINE (UA) NEGATIVE (NEGATIVE); KETONES,URINE NEGATIVE (NEGATIVE); LEUKOCYTE ESTERASE ,URINE NEGATIVE (NEGATIVE); NITRITE,URINE NEGATIVE (NEGATIVE); PROTEIN,URINE 2+ (NEGATIVE)
[2019-06-20 18:42] LABS: BASOPHILS # (AUTO) 0.1 10^3/uL (0.0-0.1); BASOPHILS % (AUTO) 0 % (0-10); EOSINOPHILS # (AUTO) 0.2 10^3/uL (0.0-0.3); EOSINOPHILS % (AUTO) 1 % (0-10); HEMATOCRIT 39 % (35-52); LYMPHOCYTES # (AUTO) 2.6 X 10^3 (1.0-4.0); LYMPHOCYTES % (AUTO) 16 % (12-44); MEAN CORPUSCULAR HEMOGLOBIN 27 PG (25-34); MEAN CORPUSCULAR HGB CONC 33 G/DL (32-36); MEAN CORPUSCULAR VOLUME 81 FL (80-99); MEAN PLATELET VOLUME 10.7 FL (7.4-10.4); MONOCYTES # (AUTO) 0.7 X 10^3 (0.0-1.0); MONOCYTES % (AUTO) 4 % (0-12); NEUTROPHILS # (AUTO) 12.1 X 10^3 (1.8-7.8); NEUTROPHILS % (AUTO) 77 % (42-75); PLATELET COUNT 339 10^3/uL (130-400); RED CELL DISTRIBUTION WIDTH 14.1 % (10.0-14.5); WHITE BLOOD COUNT 15.7 10^3/uL (4.3-11.0)
[2019-06-20 18:50] LABS: BAND NEUTROPHILS 4 %; BASOPHILS % (MANUAL) 0 %; EOSINOPHILS % (MANUAL) 1 %; LYMPHOCYTES % (MANUAL) 22 %; MONOCYTES % (MANUAL) 3 %; NEUTROPHILS % (MANUAL) 70 %; RBC MORPH NORMAL
--- NOTE | 2019-06-20 18:56 | ED GU-Female ---
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 She states that she had a subchorionic bleed with this and that she always has a mild amount of cramping but today the cramping seemed to intensify and she noticed a small amount of pink tinged blood on the toilet paper after wiping. She denies any sexual activity for the past week. No other symptoms reported at this time. Nursing Sepsis Screen: No Definite Risk History of Present Illness Date Seen by Provider: Jun 20, 2019 Time Seen by Provider: 18:25 Initial Comments light spotting 13week iup [id number] hx of sub-chorionic hemorrhage, only today, no illness noted. appt on the Timing/Duration: this morning, intermittent Severity/Quality: mild Location: suprapubic Radiation: none Activities at Onset: none Prior Genitourinary Problems: none Modifying Factors: Worsens With Lying down, Worsens With Movement, Worsens With Urinating Associated Symptoms: No dysuria, No fever/chills, No nausea/vomiting Allergies and Home Medications Allergies Coded Allergies: antipyrine (Unverified Allergy, Unknown, 01/11/15) Home Medications Acetaminophen 325 Mg Capsule, 650 MG PO Q6H Prescribed by: STACY SANTANA on 03/22/192150 Cefuroxime Axetil 250 Mg Tablet, 250 MG PO BID Prescribed by: MAIRA DHILLON on 07/27/18 1432 Ciprofloxacin HCl 500 Mg Tablet, 500 MG PO BID Prescribed by: STACY SANTANA on 03/22/192150 Dicyclomine HCl 10 Mg Capsule, 10 MG PO Q8H Prescribed by: STACY SANTANA on 03/22/192150 Ondansetron 4 Mg Tab.rapdis, 4 MG PO Q8H Prescribed by: STACY SANTANA on 03/22/192150 Vit W-Ca,Fe,FA(<1 mg) 1 Each Tablet, 1 EACH PO DAILY, (Reported) Patient Home Medication List Home Medication List Reviewed: Yes Review of Systems Review of Systems Constitutional: no symptoms reported EENTM: No throat pain, No throat swelling Respiratory: No cough, No short of breath Cardiovascular: No chest pain, No edema Gastrointestinal: abdominal pain, constipation, diarrhea; No nausea, No vomiting Genitourinary: denies dysuria, denies frequency : Yes Musculoskeletal: no symptoms reported Skin: no symptoms reported Past Vwfilpy-Qcmipv-Qwpsps Hx Past Med/Social Hx: Reviewed Nursing Past Med/Soc Hx Patient Social History Alcohol Use: Denies Use Number of Drinks Today: Alcohol Beverage of Choice: Wine Recreational Drug Use: No Smoking Status: Former Smoker Type Used: Cigars Former Smoker, Quit: Apr 06, 2019 2nd Hand Smoke Exposure: Yes Recent Foreign Travel: No Contact w/Someone Who Travel: No Recent Infectious Disease Expo: No Recent Hopitalizations: No Physical Abuse: No Sexual Abuse: No Mistreated: No Fear: No Immunizations Up To Date Tetanus Booster (TDap): Less than 5yrs Date of Influenza Vaccine: Mar 31, 2018 Seasonal Allergies Seasonal Allergies: Yes Past Medical History Surgeries: Yes ("bladder stretch", Pilonidal Cyst) Bladder Surgery Respiratory: Yes Chronic Bronchitis Cardiac: No Neurological: No Reproductive Disorders: No Female Reproductive Disorders: Menstrual Problems Genitourinary: Yes Kidney Infection, Bladder Infection Gastrointestinal: No Musculoskeletal: No Endocrine: Yes (GESTATIONAL DIABETES; OBESITY) HEENT: No Cancer: No Psychosocial: No Integumentary: No Blood Disorders: No Adverse Reaction/Blood Tranf: No Family Medical History No Pertinent Family Hx Physical Exam Vital Signs Vital Signs - First Documented 06/20/19 18:04 Temp 36.7 Pulse 91 Resp 18 B/P (MAP) 141/69 (93) Pulse Ox 97 O2 Delivery Room Air Capillary Refill : Less Than 3 Seconds Height, Weight, BMI Height: 5'8.00" Weight: 300lbs. oz. 136.496658ld; 46.00 BMI Method:Stated General Appearance: WD/WN, no apparent distress HEENT: PERRL/EOMI, TMs normal, pharynx normal Neck: non-tender, supple Cardiovascular: regular rate, rhythm, no murmur Respiratory: normal breath sounds, no respiratory distress Gastrointestinal: normal bowel sounds, non tender Extremities: normal range of motion Neurologic/Psychiatric: no motor/sensory deficits, oriented x 3 Skin: normal color, warm/dry Progress/Results/Core Measures Suspected Sepsis Recent Fever Within 48 Hours: No Infection Criteria Present: None New/Unexplained Altered Menta: No Sepsis Screen: No Definite Risk SIRS Temperature: Pulse: 91 Respiratory Rate: 18 Laboratory Tests 06/20/19 18:30: White Blood Count 15.7H Blood Pressure 141 /69 Mean: 93 Laboratory Tests 06/20/19 18:30: Platelet Count 339 Results/Orders Lab Results Laboratory Tests Test 06/20/19 18:05 06/20/19 18:30 Range/Units Urine Color YELLOW Urine Clarity [place] CLOUDY Urine pH 6.0 5-9 Urine Specific [place] >1.030 1.016-1.022 Urine Protein 2+ H NEGATIVE Urine Glucose (UA) NEGATIVE NEGATIVE Urine Ketones NEGATIVE NEGATIVE Urine Nitrite NEGATIVE NEGATIVE Urine Bilirubin NEGATIVE NEGATIVE Urine Urobilinogen 0.2 < = 1.0 MG/DL Urine Leukocyte Esterase NEGATIVE NEGATIVE Urine RBC (Auto) NEGATIVE NEGATIVE Urine RBC NONE /HPF Urine WBC NONE /HPF Urine Squamous Epithelial Cells 5-10 /HPF Urine Crystals PRESENT H /LPF Urine Amorphous Sediment FEW LEEANNE URATES H /LPF Urine Bacteria FEW H /HPF Urine Casts NONE /LPF Urine Mucus MODERATE H /LPF Urine Culture Indicated NO White Blood Count 15.7 H 4.3-11.0 10^3/uL Red Blood Count 4.83 4.35-5.85 10^6/uL Hemoglobin 13.0 11.5-16.0 G/DL Hematocrit 39 35-52 % Mean Corpuscular Volume 81 80-99 FL Mean Corpuscular Hemoglobin 27 25-34 PG Mean Corpuscular Hemoglobin Concent 33 32-36 G/DL Red Cell Distribution Width 14.1 10.0-14.5 % Platelet Count 339 130-400 10^3/uL Mean Platelet Volume 10.7 H 7.4-10.4 FL Neutrophils (%) (Auto) 77 H 42-75 % Lymphocytes (%) (Auto) 16 12-44 % Monocytes (%) (Auto) 4 0-12 % Eosinophils (%) (Auto) 1 0-10 % Basophils (%) (Auto) 0 0-10 % Neutrophils # (Auto) 12.1 H 1.8-7.8 X 10^3 Lymphocytes # (Auto) 2.6 1.0-4.0 X 10^3 Monocytes # (Auto) 0.7 0.0-1.0 X 10^3 Eosinophils # (Auto) 0.2 0.0-0.3 10^3/uL Basophils # (Auto) 0.1 0.0-0.1 10^3/uL Neutrophils % (Manual) 70 % Lymphocytes % (Manual) 22 % Monocytes % (Manual) 3 % Eosinophils % (Manual) 1 % Basophils % (Manual) 0 % Band Neutrophils 4 % Blood Morphology Comment NORMAL Human Chorionic Gonadotropin, Quant [id number] H <5 MIU/ML My Orders Orders - CARLOS LEE JR, MD Cbc And Manual Diff (06/20/19 18:22) Hcg,Quantitative (06/20/19 18:22) Ua Culture If Indicated (06/20/19 18:22) Vital Signs/I&O 06/20/19 18:04 Temp 36.7 Pulse 91 Resp 18 B/P (MAP) 141/69 (93) Pulse Ox 97 O2 Delivery Room Air Capillary Refill : Less Than 3 Seconds Blood Pressure Mean: 93 Progress Note : Time: 18:59 Progress Note discussed lab and going forward. will return if problems, maintain rest and fluids, no intercourse, see coverage specialist as previously set up. Departure Impression Primary Impression: Threatened miscarriage in early Disposition: 01 HOME, SELF-CARE Condition: Stable Departure-Patient Inst. Referrals: JACKY BLANKENSHIP MD (PCP/Family) Primary Care Physician Patient Instructions: Bleeding With CARLOS LEE JR, MD Jun 20, 2019 18:56
[2019-06-20 19:14] VITALS: BP 142/79
== END 2019-06-20 19:13 | disposition home or self-care (01) ==
LOC: EDUNIT# 17:59 → ER FS 18:01
DX: O20.0 Threatened abortion (principal); O99.211 Obesity complicating pregnancy, first trimester; Z88.8 Allergy status to other drugs, medicaments and biological substances; Z87.891 Personal history of nicotine dependence; Z77.22 Contact with and (suspected) exposure to environmental tobacco smoke (acute) (chronic); Z86.32 Personal history of gestational diabetes; Z3A.13 13 weeks gestation of pregnancy
CPT/HCPCS: 36415; 81000; 84702; 85007; 85027

== ENCOUNTER → 2019-06-30 | Outpatient (CLI) | payer MEDICAID | LOC: LAB FS 09:28 | PROVIDERS: ATTEND Family Medicine | DX: O10.919 Unspecified pre-existing hypertension complicating pregnancy, unspecified trimester (principal) ==

== ENCOUNTER 2019-07-07 16:17 | Emergency (ER) | payer MEDICAID ==
[~2019-07-07] VITALS: Ht 172 cm; Wt 306.0 kg
--- NOTE | 2019-07-07 16:42 | NUR ---
NOTIFIED OF BUSY ER WITH POSSIBLE LONG WAIT TIME.
[2019-07-07 18:46] LABS: BILIRUBIN,URINE NEGATIVE (NEGATIVE); CLARITY,URINE CLEAR; COLOR,URINE YELLOW; GLUCOSE, URINE (UA) NEGATIVE (NEGATIVE); KETONES,URINE NEGATIVE (NEGATIVE); LEUKOCYTE ESTERASE ,URINE NEGATIVE (NEGATIVE); NITRITE,URINE NEGATIVE (NEGATIVE); PH,URINE 6.5 (5-9); PROTEIN,URINE 1+ (NEGATIVE)
[2019-07-07 18:56] LABS: BACTERIA,URINE TRACE /HPF; CALCIUM OXALATE CRYSTALS,UR RARE /LPF
[2019-07-07 18:57] LABS: AMORPHOUS SEDIMENT,UR LARGE AMOR URATES /LPF
[2019-07-07] MEDS ORDERED: ONDA4TAB11 SL (20:05)
[2019-07-07] MEDS ORDERED: PROM25TA14 PO (20:05)
--- NOTE | 2019-07-07 20:05 | ED GU-Female ---
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 STATES THE SPOTTING IS LIGHT. 16 WEEKS GESTATION. Nursing Sepsis Screen: No Definite Risk Source: patient Exam Limitations: no limitations History of Present Illness Date Seen by Provider: Jul 07, 2019 Time Seen by Provider: 18:12 Initial Comments This 24-year-old young lady at about 16 weeks gestational age presents to the emergency room with complaints of lower abdominal cramping. She is also had matthew e mild cough recently. She reports having 2 prior ultrasounds and diagnosis of subchorionic hemorrhage. Her obstetrical provider is Jacky Blankenship at [facility]. She has had some alternating diarrhea and constipation. She has constant nausea and vomiting during the . She also shows this provider recent labs performed in the outpatient setting showing a protein to creatinine ratio of 264 and a total 24-hour protein of 481. Both of these values are outside of normal range. She is mildly hypertensive but not meeting treatment criteria. heart tones are in the 150s by Doppler. She reports her last episode of spotting was more than 24 hours ago. Allergies and Home Medications Allergies Coded Allergies: antipyrine (Unverified Allergy, Unknown, 01/11/15) Home Medications Ondansetron 4 Mg Tab.rapdis, 4 MG SL Q4H PRN for NAUSEA/VOMITING Prescribed by: ESTELA NAGEL on 07/07/192004 Promethazine HCl 25 Mg Tablet, 25 MG PO Q8H PRN for NAUSEA/VOMITING Prescribed by: ESTELA NAGEL on 07/07/192004 Patient Home Medication List Home Medication List Reviewed: Yes Review of Systems Review of Systems Constitutional: no symptoms reported EENTM: no symptoms reported Respiratory: see HPI Cardiovascular: see HPI Gastrointestinal: see HPI Genitourinary: see HPI : No Expected Date of Delivery: Dec 19, 2019 Musculoskeletal: no symptoms reported Skin: no symptoms reported Psychiatric/Neurological: No Symptoms Reported Endocrine: No Symptoms Reported Hematologic/Lymphatic: No Symptoms Reported Past Nhkibeo-Keusxq-Orksmp Hx Past Med/Social Hx: Reviewed Nursing Past Med/Soc Hx Patient Social History Alcohol Use: Denies Use Alcohol Beverage of Choice: Wine Recreational Drug Use: No Smoking Status: Former Smoker Type Used: Cigars Former Smoker, Quit: Apr 06, 2019 2nd Hand Smoke Exposure: Yes Recent Foreign Travel: No Contact w/Someone Who Travel: No Recent Infectious Disease Expo: No Recent Hopitalizations: No Immunizations Up To Date Tetanus Booster (TDap): Less than 5yrs Date of Influenza Vaccine: Mar 31, 2018 Seasonal Allergies Seasonal Allergies: Yes Past Medical History Surgeries: Yes ("bladder stretch", Pilonidal Cyst) Bladder Surgery Respiratory: Yes Chronic Bronchitis Cardiac: No Neurological: No : Yes Expected Date of Delivery: Dec 19, 2019 Hx : 5 Hx Para: 1 Hx Total # of Abortions (Sp): 3 Reproductive Disorders: No Female Reproductive Disorders: Menstrual Problems Genitourinary: Yes Kidney Infection, Bladder Infection Gastrointestinal: No Musculoskeletal: No Endocrine: Yes (GESTATIONAL DIABETES; OBESITY) HEENT: No Cancer: No Psychosocial: No Integumentary: No Blood Disorders: No Adverse Reaction/Blood Tranf: No Family Medical History No Pertinent Family Hx Physical Exam Vital Signs Vital Signs - First Documented 07/07/19 16:36 Temp 36.9 Pulse 97 Resp 16 B/P (MAP) 148/84 (105) Pulse Ox 98 O2 Delivery Room Air Capillary Refill : Less Than 3 Seconds Height, Weight, BMI Height: 5'8.00" Weight: 300lbs. oz. 136.716862om; 103.00 BMI Method:Stated General Appearance: WD/WN, no apparent distress, obese HEENT: PERRL/EOMI, normal ENT inspection Neck: normal inspection Cardiovascular: regular rate, rhythm, no edema, no murmur Respiratory: lungs clear, normal breath sounds, no respiratory distress, no accessory muscle use Gastrointestinal: normal bowel sounds, non tender, soft Extremities: normal inspection, no pedal edema Neurologic/Psychiatric: pharmacy technician per diem II-XII nml as tested, no motor/sensory deficits, alert, normal mood/affect, oriented x 3 Skin: normal color, warm/dry Progress/Results/Core Measures Suspected Sepsis Recent Fever Within 48 Hours: No Infection Criteria Present: None New/Unexplained Altered Menta: No Sepsis Screen: No Definite Risk SIRS Temperature: Pulse: 97 Respiratory Rate: 16 Blood Pressure 148 /84 Mean: 105 Results/Orders Lab Results Laboratory Tests Test 07/07/19 18:32 Range/Units Urine Color YELLOW Urine Clarity CLEAR Urine pH 6.5 5-9 Urine Specific [place] 1.025 H 1.016-1.022 Urine Protein 1+ H NEGATIVE Urine Glucose (UA) NEGATIVE NEGATIVE Urine Ketones NEGATIVE NEGATIVE Urine Nitrite NEGATIVE NEGATIVE Urine Bilirubin NEGATIVE NEGATIVE Urine Urobilinogen 0.2 < = 1.0 MG/DL Urine Leukocyte Esterase NEGATIVE NEGATIVE Urine RBC (Auto) NEGATIVE NEGATIVE Urine RBC NONE /HPF Urine WBC NONE /HPF Urine Squamous Epithelial Cells 10-25 H /HPF Urine Crystals PRESENT H /LPF Urine Calcium Oxalate Crystals RARE H /LPF Urine Amorphous Sediment LARGE LEEANNE URATES H /LPF Urine Bacteria TRACE /HPF Urine Casts NONE /LPF Urine Mucus NEGATIVE /LPF Urine Culture Indicated NO My Orders Orders - ESTELA CARDONA MD Ua Culture If Indicated (07/07/19 18:15) Vital Signs/I&O Capillary Refill : Less Than 3 Seconds Blood Pressure Mean: 105 Progress Note : Progress Note Patient's urine showed only 1+ protein and no evidence of infection. She is actually feeling improved at this time. heart tones are reassuring. We discussed strategies for managing cramping. She is to follow-up with her primary obstetrical team. Departure Impression Primary Impression: Abdominal cramping affecting Additional Impressions: Nausea and vomiting during Hypertension affecting Qualified Codes: O16.2 - Unspecified maternal hypertension, second trimester Disposition: HOME, SELF-CARE Condition: Stable Departure-Patient Inst. Decision time for Depature: 20:02 Referrals: JACKY BLANKENSHIP MD (PCP/Family) Primary Care Physician Patient Instructions: Stomach Pain in Early Add. Discharge Instructions: Drink plenty of clear liquids. You may use Zofran for management of nausea with Phenergan as a backup t reatment. Please follow-up with your primary obstetrical team as soon as possible. Return to the emergency room if you have worsening symptoms. All discharge instructions reviewed with patient and/or family. Voiced understanding. Scripts Promethazine HCl (Promethazine Tablet) 25 Mg Tablet 25 MG PO Q8H PRN for NAUSEA/VOMITING, #10 TAB Prov: ESETLA CARDONA MD 07/07/19 Ondansetron (Ondansetron Odt) 4 Mg Tab.rapdis 4 MG SL Q4H PRN for NAUSEA/VOMITING, #10 TAB Prov: ESTELA CARDONA MD 07/07/19 Copy Copies To 1: BLANKENSHIP,ESETLA HALEY MD, MD Jul 07, 2019 20:05
[2019-07-07 20:10] VITALS: BP 141/76
== END 2019-07-07 20:10 | disposition home or self-care (01) ==
LOC: EDUNIT# 16:17 → ER 16:20
DX: O26.892 Other specified pregnancy related conditions, second trimester (principal); R10.9 Unspecified abdominal pain; O21.9 Vomiting of pregnancy, unspecified; O16.2 Unspecified maternal hypertension, second trimester; O99.212 Obesity complicating pregnancy, second trimester; Z3A.16 16 weeks gestation of pregnancy; Z88.8 Allergy status to other drugs, medicaments and biological substances; Z87.891 Personal history of nicotine dependence; Z77.22 Contact with and (suspected) exposure to environmental tobacco smoke (acute) (chronic); Z86.32 Personal history of gestational diabetes
CPT/HCPCS: 81000

== ENCOUNTER → 2019-09-07 | Outpatient (CLI) | payer MEDICAID ==
[~2019-09-07] MED LIST changes: -ACET325C5 PO; +ACET325C7 PO; +ONDA4TAB11 SL; +PROM25TA14 PO
[2019-09-07 11:26] LABS: HEMATOCRIT 32 % (35-52); HEMOGLOBIN 10.4 G/DL (11.5-16.0); LYMPHOCYTES % (AUTO) 12 % (12-44); MEAN CORPUSCULAR HEMOGLOBIN 27 PG (25-34); MEAN CORPUSCULAR HGB CONC 33 G/DL (32-36); MEAN CORPUSCULAR VOLUME 84 FL (80-99); MEAN PLATELET VOLUME 10.2 FL (7.4-10.4); NEUTROPHILS % (AUTO) 83 % (42-75); PLATELET COUNT 316 10^3/uL (130-400); RED CELL DISTRIBUTION WIDTH 15.1 % (10.0-14.5); WHITE BLOOD COUNT 15.5 10^3/uL (4.3-11.0)
[2019-09-07 11:27] LABS: BASOPHILS % (AUTO) 0 % (0-10); EOSINOPHILS # (AUTO) 0.2 10^3/uL (0.0-0.3); EOSINOPHILS % (AUTO) 1 % (0-10); LYMPHOCYTES # (AUTO) 1.8 X 10^3 (1.0-4.0); MONOCYTES # (AUTO) 0.6 X 10^3 (0.0-1.0); MONOCYTES % (AUTO) 4 % (0-12); NEUTROPHILS # (AUTO) 12.8 X 10^3 (1.8-7.8)
[2019-09-07 11:55] LABS: BAND NEUTROPHILS 2 %; BASOPHILS % (MANUAL) 0 %; EOSINOPHILS % (MANUAL) 0 %; LYMPHOCYTES % (MANUAL) 17 %; METAMYELOCYTES % 1 %; MONOCYTES % (MANUAL) 5 %; NEUTROPHILS % (MANUAL) 75 %
== END ==
LOC: LAB FS 10:49
PROVIDERS: ATTEND Family Medicine
DX: O09.90 Supervision of high risk pregnancy, unspecified, unspecified trimester (principal); Z3A.00 Weeks of gestation of pregnancy not specified
CPT/HCPCS: 36415; 82950; 85007; 85027; 86780

== ENCOUNTER → 2019-09-08 | Outpatient (CLI) | payer MEDICAID | LOC: LAB FS 11:49 | PROVIDERS: ATTEND Family Medicine | DX: O09.90 Supervision of high risk pregnancy, unspecified, unspecified trimester (principal); O99.810 Abnormal glucose complicating pregnancy; Z3A.00 Weeks of gestation of pregnancy not specified | CPT/HCPCS: 36415; 82951; 82952 ==

== ENCOUNTER 2019-10-18 17:06 | Outpatient (CLI) | payer MEDICAID ==
--- NOTE | 2019-10-18 17:15 | NUR ---
RAFA ALMONTE presented to unit via w/c from ED, accompanied by staff, with c/o ABD PAIN/CONTRACTIONS. RAFA ALMONTE weighed, gowned, voided, and to bed. EFHM and TOCO applied, VS taken. RAFA ALMONTE oriented to bed controls, call light, TV, heat, and A/C controls.
[2019-10-18 17:52] VITALS: BP 143/71
[2019-10-18 17:55] VITALS: BP 143/71
[2019-10-18] MEDS ORDERED: NS IV 1000 ML 1,000 ML ONE (18:10)
[2019-10-18 18:14] LABS: BILIRUBIN,URINE NEGATIVE (NEGATIVE); CLARITY,URINE SL CLOUDY; COLOR,URINE YELLOW; GLUCOSE, URINE (UA) NEGATIVE (NEGATIVE); KETONES,URINE NEGATIVE (NEGATIVE); LEUKOCYTE ESTERASE ,URINE NEGATIVE (NEGATIVE); NITRITE,URINE NEGATIVE (NEGATIVE); PROTEIN,URINE NEGATIVE (NEGATIVE)
[2019-10-18 18:21] LABS: BACTERIA,URINE MODERATE /HPF; WBC,URINE RARE /HPF
[2019-10-18 19:28] LABS: BASOPHILS % (AUTO) 0 % (0-10); EOSINOPHILS # (AUTO) 0.2 10^3/uL (0.0-0.3); EOSINOPHILS % (AUTO) 1 % (0-10); HEMATOCRIT 33 % (35-52); HEMOGLOBIN 10.6 G/DL (11.5-16.0); LYMPHOCYTES # (AUTO) 2.3 X 10^3 (1.0-4.0); LYMPHOCYTES % (AUTO) 13 % (12-44); MEAN CORPUSCULAR HEMOGLOBIN 26 PG (25-34); MEAN CORPUSCULAR HGB CONC 32 G/DL (32-36); MEAN CORPUSCULAR VOLUME 81 FL (80-99); MEAN PLATELET VOLUME 10.4 FL (7.4-10.4); MONOCYTES # (AUTO) 0.9 X 10^3 (0.0-1.0); MONOCYTES % (AUTO) 5 % (0-12); NEUTROPHILS # (AUTO) 13.8 X 10^3 (1.8-7.8); NEUTROPHILS % (AUTO) 80 % (42-75); PLATELET COUNT 358 10^3/uL (130-400); RED CELL DISTRIBUTION WIDTH 14.9 % (10.0-14.5); WHITE BLOOD COUNT 17.1 10^3/uL (4.3-11.0)
[2019-10-18 19:40] LABS: ALANINE AMINOTRANSFERASE 9 U/L (0-55); ALBUMIN 3.1 GM/DL (3.2-4.5); ALKALINE PHOSPHATASE 99 U/L (40-136); BILIRUBIN,TOTAL 0.2 MG/DL (0.1-1.0); BUN/CREATININE RATIO 16; CALCIUM 9.3 MG/DL (8.5-10.1); CARBON DIOXIDE 19 MMOL/L (21-32); CHLORIDE 106 MMOL/L (98-107); CREATININE SERUM 0.58 MG/DL (0.60-1.30); GFR ESTIMATED > 60; GLUCOSE 110 MG/DL (70-105); POTASSIUM 4.1 MMOL/L (3.6-5.0); SODIUM 136 MMOL/L (135-145); TOTAL PROTEIN 6.6 GM/DL (6.4-8.2)
--- NOTE | 2019-10-18 20:05 | NUR ---
Assessment completed. pt reports abdominal pain is now gone. States she is only having pressure with contractions rates pain /. called with lab results. new orders received.
--- NOTE | 2019-10-18 20:15 | NUR ---
SVE performed by Dave bowles. no cervical change noted. notified of exam. new orders received.
[2019-10-18] MEDS ORDERED: ACETAMINOPHEN 500 MG TAB (TYLENOL) ONE (20:20)
[2019-10-18] MEDS ORDERED: ACETAMINOPHEN 500 MG TAB (TYLENOL) PO ONE (20:30)
--- NOTE | 2019-10-18 20:31 | NUR ---
Plan of care discussed with pt. tylenol given po. Pt states the pain is already getting better. rates pain /
[2019-10-18] MEDS ORDERED: NPH,100V SQ ×2 (20:47)
[2019-10-18] MEDS ORDERED: FAMO40TA72 PO (20:47)
[2019-10-18] MEDS ORDERED: PNV1TABL9 PO (20:49)
[2019-10-18] MEDS ORDERED: INSU100V39 SQ (20:49)
[2019-10-18] MEDS ORDERED: LABE300T2 PO (20:49)
--- NOTE | 2019-10-18 20:50 | NUR ---
pt states she is feeling better and requesting to go home. pt dc'd from the monitor.
--- NOTE | 2019-10-18 21:10 | NUR ---
Discharge instructions verbalized with pt. pt verbalized understanding. labor precautions given. pt has follow up appointment tomorrow in [place]. pt denies any further needs. Discharged home with mother at side.
[2019-10-18 21:22] VITALS: BP 125/63
== END 2019-10-18 21:10 ==
LOC: LDRP 17:06 → WSo 17:06
PROVIDERS: ATTEND Obstetrics & Gynecology
DX: O26.899 Other specified pregnancy related conditions, unspecified trimester (principal); R10.9 Unspecified abdominal pain; Z3A.00 Weeks of gestation of pregnancy not specified
CPT/HCPCS: 36415; 80053; 81000; 85025; 87088; 99213

== ENCOUNTER → 2020-01-11 | Outpatient (CLI) | payer MEDICAID ==
[~2020-01-11] MED LIST changes: +FAMO40TA72 PO; +INSU100V39 SQ; +LABE300T2 PO; +NPH,100V SQ; +PNV1TABL9 PO
== END ==
LOC: LAB FS 10:08
PROVIDERS: ATTEND Family Medicine
DX: Z01.812 Encounter for preprocedural laboratory examination (principal); Z20.828 Contact with and (suspected) exposure to other viral communicable diseases
CPT/HCPCS: 87635

== ENCOUNTER → 2020-01-19 | Outpatient (CLI) | payer MEDICAID ==
[2020-01-19 11:46] LABS: BILIRUBIN,URINE NEGATIVE (NEGATIVE); CLARITY,URINE SL CLOUDY; COLOR,URINE YELLOW; GLUCOSE, URINE (UA) NEGATIVE (NEGATIVE); KETONES,URINE NEGATIVE (NEGATIVE); LEUKOCYTE ESTERASE ,URINE NEGATIVE (NEGATIVE); NITRITE,URINE NEGATIVE (NEGATIVE); PROTEIN,URINE 2+ (NEGATIVE)
[2020-01-19 11:47] LABS: BACTERIA,URINE FEW /HPF
== END ==
LOC: LAB FS 11:08
PROVIDERS: ATTEND Family Medicine
DX: R30.0 Dysuria (principal)
CPT/HCPCS: 81000

== ENCOUNTER → 2020-06-17 | Outpatient (CLI) | payer MEDICAID ==
--- NOTE | 2020-06-17 17:59 | Diagnostic Imaging Report ---
INDICATION: Back pain with right leg radiculopathy. AP and lateral views of the lumbar spine obtained. The lumbar vertebrae are normal in height and alignment. There is no fracture or subluxation. There is disc space narrowing of moderate severity at L4-L5 with endplate degenerative change. There is a prominent osteophyte of L3 anteriorly and superiorly with chronic appearing focal irregularity. This appearance has not changed compared to the old CT of 04/19/2014. IMPRESSION: Chronic changes in the lumbar spine with chronic irregularity with osteophyte at L3, with disc space narrowing at L4-L5. There is no acute appearing finding. Dictated by: Dictated on workstation # [id number]
--- NOTE | 2020-06-17 18:03 | Diagnostic Imaging Report ---
INDICATION: Pain. Two views were obtained. FINDINGS: The alignment is normal. There is no fracture or dislocation. Soft tissues are unremarkable. IMPRESSION: No acute fracture or dislocation Dictated by: Dictated on workstation # [id number]
== END ==
LOC: RAD FS 16:19
PROVIDERS: ATTEND Nurse Practitioner Family
DX: M54.41 Lumbago with sciatica, right side (principal); M48.061 Spinal stenosis, lumbar region without neurogenic claudication; M25.78 Osteophyte, vertebrae; M25.551 Pain in right hip
CPT/HCPCS: 72100; 73502

== ENCOUNTER 2020-12-05 05:33 | Outpatient (CLI) | payer MEDICAID ==
[~2020-12-05] VITALS: Ht 172.7 cm; Wt 152.5 kg
[~2020-12-05 05:33] MED LIST changes: -CIPR500T4 PO; +CIPR500T5 PO
[2020-12-05] MEDS ORDERED: LEVO13CA4 PO (10:16)
[2020-12-05] MEDS ORDERED: FAMO40TA6 PO (10:16)
[2020-12-05] MEDS ORDERED: LISI1TAB29 PO (10:16)
[2020-12-05] MEDS ORDERED: FLUO20CA46 PO (10:16)
== END 2020-12-05 10:29 | disposition home or self-care (01) ==
LOC: PREOP 05:33
PROVIDERS: ATTEND Obstetrics & Gynecology
DX: Z01.818 Encounter for other preprocedural examination (principal)

== ENCOUNTER 2020-12-12 08:59 | Day surgery (SDC) | payer MEDICAID ==
[~2020-12-12] VITALS: Ht 172.7 cm; Wt 152.5 kg
[2020-12-12] VITALS (10 sets, daily range): BP systolic 132–152; BP diastolic 80–99
[~2020-12-12 08:59] MED LIST changes: +FAMO40TA6 PO; +FLUO20CA46 PO; +LEVO13CA4 PO; +LISI1TAB29 PO
[2020-12-12] MEDS ORDERED: BUPIVACAINE 0.25% 30 ML (SENSORCAINE) VIAL ONE (09:23)
[2020-12-12 09:45] LABS: BASOPHILS % (AUTO) 0 % (0-10); EOSINOPHILS # (AUTO) 0.3 10^3/uL (0.0-0.3); EOSINOPHILS % (AUTO) 2 % (0-10); HEMATOCRIT 39 % (35-52); HEMOGLOBIN 12.3 g/dL (11.5-16.0); LYMPHOCYTES # (AUTO) 2.8 10^3/uL (1.0-4.0); LYMPHOCYTES % (AUTO) 23 % (12-44); MEAN CORPUSCULAR HEMOGLOBIN 25 pg (25-34); MEAN CORPUSCULAR HGB CONC 31 g/dL (32-36); MEAN CORPUSCULAR VOLUME 81 fL (80-99); MEAN PLATELET VOLUME 10.8 fL (9.0-12.2); MONOCYTES # (AUTO) 0.6 10^3/uL (0.0-1.0); MONOCYTES % (AUTO) 5 % (0-12); NEUTROPHILS # (AUTO) 8.3 10^3/uL (1.8-7.8); NEUTROPHILS % (AUTO) 69 % (42-75); PLATELET COUNT 416 10^3/uL (130-400); WHITE BLOOD COUNT 12.1 10^3/uL (4.3-11.0)
[2020-12-12] MEDS ORDERED: LACTATED RINGERS 1,000 ML IV PRN (09:45)
[2020-12-12] MEDS ORDERED: FAMOTIDINE 20MG/2ML IV (PEPCID) IV ONE (10:00)
--- NOTE | 2020-12-12 10:11 | Progress Note-Pre Operative ---
Pre-Operative Progress Note H&P Reviewed The H&P was reviewed, patient examined and no changes noted. Date Seen by Provider: Dec 12, 2020 Time Seen by Provider: 10:00 Date H&P Reviewed: Dec 12, 2020 Time H&P Reviewed: 10:00 Pre-Operative Diagnosis: aub, bmi >50 KELSEY MAURICE DO Dec 12, 2020 10:11
[2020-12-12] MEDS ORDERED: fentaNYL INJ 100 MCG/2 ML AMP ONE (10:12)
[2020-12-12] MEDS ORDERED: MIDAZOLAM 2 MG/2 ML (VERSED) VIAL ONE (10:12)
[2020-12-12] MEDS ORDERED: IBUP-1773 PO (10:14)
--- NOTE | 2020-12-12 10:14 | Discharge Inst-Women's Service ---
Discharge Inst-Women's Serv Depart Medication/Instructions New, Converted or Re-Newed RX: RX on Chart Problems Reviewed?: Yes Consults/Follow Up Additional Follow Up: Yes Orders/Referrals Dr. Maurice in 8 weeks for IUD check Activity Driving Instructions: You May Drive (no driving today) NO SMOKING: NO SMOKING Diet Discharge Diet: No Restrictions Symptoms to Report to : Bleeding Excessive, Pain Increased, Fever Over 101 Degrees F, Vaginal Bleeding Increase, Questions/Concerns For Any Problems or Questions: Contact Your Physician KELSEY MAURICE DO Dec 12, 2020 10:14
[2020-12-12] MEDS ORDERED: KETOROLAC 30 MG/ML VIAL IVP ONE (10:15)
[2020-12-12] MEDS ORDERED: HYDROcodone/APAP 5 MG/325 MG (LORTAB) TAB PO PRN (10:15)
[2020-12-12] MEDS ORDERED: D5 LR IV SOLUTION 1,000 ML IV SCH (10:15)
[2020-12-12] MEDS ORDERED: ONDANSETRON 4 MG/2 ML (SDV) Z0FRAN IVP PRN ×2 (10:15→11:30)
[2020-12-12] MEDS ORDERED: LIDOCAINE PF 2% 5 ML (XYLOCAINE) VIAL ONE (10:34)
[2020-12-12] MEDS ORDERED: ONDANSETRON 4 MG/2 ML (SDV) Z0FRAN ONE (10:34)
[2020-12-12] MEDS ORDERED: proPOfol 200 MG/20 ML (DIPRIVAN) VIAL IV ONE (10:34)
[2020-12-12] MEDS ORDERED: SEVOFLURANE (ULTANE) 15 ML INHAL SOLN ONE (10:34)
[2020-12-12] MEDS ORDERED: KETOROLAC 30 MG/ML VIAL ONE (10:39)
[2020-12-12] MEDS ORDERED: morphine INJ 10 MG/ML 1ML (SYR OR VIAL) ONE (11:19)
[2020-12-12] MEDS ORDERED: morphine INJ 10 MG/ML 1ML (SYR OR VIAL) IVP ONE (11:30)
--- NOTE | 2020-12-12 12:33 | Anesthesia-General Post-Op ---
General Patient Condition Mental Status/LOC: Same as Preop Cardiovascular: Satisfactory Nausea/Vomiting: Absent Respiratory: Satisfactory Pain: Controlled Complications: Absent Post Op Complications Complications None Follow Up Care/Instructions Patient Instructions None needed. Anesthesia/Patient Condition Patient Condition Patient is doing well, no complaints, stable vital signs, no apparent adverse anesthesia problems. No complications reported per nursing. BERNABE GORDON CRNA Dec 12, 2020 12:33
--- NOTE | 2020-12-12 18:51 | OPERATIVE REPORT ---
DATE OF SERVICE: PREOPERATIVE DIAGNOSES: 1. A 25-year-old female with abnormal uterine bleeding. 2. BMI greater than 50. POSTOPERATIVE DIAGNOSES: 1. A 25-year-old female with abnormal uterine bleeding. 2. BMI greater than 50. PROCEDURE: D and C with IUD placement. SURGEON: Kelsey Maurice DO ANESTHESIA: LMA general. ESTIMATED BLOOD LOSS: Minimal. URINE OUTPUT: 80 mL clear at the start of the procedure. FLUIDS: 800 mL lactated Ringer's solution. FINDINGS: Copious amount of endometrial curettings suspicious for endometrial polyp. Grossly normal-appearing external female genitalia otherwise. SPECIMEN SENT: Endometrial curettings. INDICATIONS FOR PROCEDURE: This 25-year-old female was a consultation to my office to consider hysterectomy due to her heavy bleeding; however, the patient had not been appropriately counseled about more conservative measures. I discussed with the patient due to her bleeding issues and failures with oral contraceptive pills then IUD might be a better option for her. I discussed with her performing a D and C due to the likelihood of thickened endometrial lining given her weight and BMI of greater than 50. We would do the D and then placed an IUD at the same time. Risk of this procedure were discussed with the patient in detail. After all of her questions were answered, consent was obtained in the preoperative area, the patient was taken to the operating room. OPERATIVE REPORT IN DETAIL: Once in the operating room, LMA anesthesia was found to be adequate, placed in the dorsal lithotomy position, prepped and draped in normal sterile fashion. A timeout was performed. The bladder was then drained using straight catheterization. A weighted speculum was inserted to the patient's vagina. Right angle retractor was used to visualize the cervix, which was grasped at 12 o'clock position using a long Allis clamp. I then performed a paracervical block at 3 and 9 o'clock positions on the cervix. Care was taken to aspirate before injecting, 0.25% Marcaine with 5 mm injected into each site after which I then gently sound the uterine cavity that was found to be 8 cm. I performed a gentle curettage of the endometrium tried and attempted to clear all surfaces of the endometrial cavity of their contents. Moderate to copious amount of endometrial curettings were collected by doing so. These were sent together as one specimen endometrial curettings. I then placed a Liletta IUD progestin device at a depth of 8 cm as this is what the uterus had sounded prior, after which I trimmed the strings. There was no active bleeding noted from any of my dissection planes. I removed all the instruments from the patient's vagina. The IUD was left in place. Lap and sponge counts were correct at the end of the procedure. Instrument counts were correct as well. Job ID: [id number] DocumentID: [id number] Dictated Date: 12/12/2020 10:55:28 Systems Programmer Date: 12/12/2020 18:51:06 Dictated By: KELSEY MAURICE DO
== END 2020-12-12 12:35 | disposition home or self-care (01) ==
LOC: SDC 08:59
PROVIDERS: ATTEND Obstetrics & Gynecology
DX: N93.8 Other specified abnormal uterine and vaginal bleeding (principal); I10 Essential (primary) hypertension; F32.9 Major depressive disorder, single episode, unspecified; F41.9 Anxiety disorder, unspecified; E03.9 Hypothyroidism, unspecified; N39.0 Urinary tract infection, site not specified; K21.9 Gastro-esophageal reflux disease without esophagitis; E66.01 Morbid (severe) obesity due to excess calories; R51.9 Headache, unspecified; E11.9 Type 2 diabetes mellitus without complications; M19.90 Unspecified osteoarthritis, unspecified site; J42 Unspecified chronic bronchitis; Z68.43 Body mass index [BMI] 50.0-59.9, adult; Z79.899 Other long term (current) drug therapy; Z79.890 Hormone replacement therapy; Z87.891 Personal history of nicotine dependence
CPT/HCPCS: 36415; 84703; 85025; 86850; 86900; 86901; 87081; 88305